=== PATIENT | female | born 1960 | race Caucasian/White ===

== ENCOUNTER 2016-08-09 08:59 | Emergency (ER) | payer OTHER ==
[~2016-08-09] VITALS: Ht 170.2 cm; Wt 66.8 kg
[~2016-08-09 08:59] MED LIST: ADDE30TA PO; BUPR150CR PO; CARV12.52 PO; GABA800T PO
[2016-08-09 09:03] VITALS: BP 135/87; PULSE 106; RESP 16; TEMP 97.6; O2SAT 98
[2016-08-09 09:17] VITALS: BP 145/87; PULSE 105; RESP 19; TEMP 98.4
--- NOTE | 2016-08-09 09:25 | PD ---
HPI Chief Complaint: Dizziness Time Seen by Provider: 09:23 Travel History International Travel<30 days: No Contact w/Intl Traveler<30days: No Traveled to known affect area: No History of Present Illness HPI 55-year-old female presents to the emergency department for evaluation of dizziness for 4 days as well as occipital headache. Patient's been seen before for headache and worked up for possible metastatic disease, and states this is her chronic headaches. Patient also states she has vomited twice, once this morning. She denies any syncopal episodes. She reports paresthesias to her bilateral hands and feet. She denies any weakness. She reports body aches. Patient denies any chest pain or shortness of breath. She states that she has had bugs crawling in her skin for 4 days. She points to a freckle and states that it is a "dust mite". Patient reports a history of anxiety, depression, cervical cancer, alcoholic. Patient was seen April and in May for headache and paresthesias then as well. She left [place] April and then returned in May to be admitted. She states that she is going to go to [place] for chemotherapy and radiation, but does not have insurance down here so she has not done so here. She has not followed up with the neurosurgeon or oncologist as previously instructed. Previous MRI showed abnormal marrow signal again noted in the upper half of the C2 vertebral body as well as the C6 and C7 vertebral bodies of concern for a marrow replacing process such as metastatic disease or myeloma. These areas enhance after gadolinium administration; disc osteophyte complexes at the C4-5 and C5-6 levels as well as an annular disc bulge at C6-7 with mild mass effect on the anterior thecal sac no mass effect upon the cord; narrowing of the neural foramina bilaterally at the C4-5 and C5-6 levels. PFSH Past Medical History Blood Disorders: No Bipolar Disorder: Yes Anxiety: Yes Depression: Yes Heart Rhythm Problems: No Cancer: Yes (lesions found on her brain/skull as per pt.) Cardiovascular Problems: Yes (HTN) High Cholesterol: No Chest Pain: No Congestive Heart Failure: No Diabetes: No Diminished Hearing: No Endocrine: No Gastrointestinal Disorders: Yes (IBS) Genitourinary: No Headaches: Yes Hepatitis: Yes (C) Hiatal Hernia: No Hypertension: Yes Immune Disorder: No Implanted Vascular Access Dvce: No Musculoskeletal: No Neurologic: No Psychiatric: Yes (BIPOLAR, MANIC DEPRESSION) Reproductive: Yes (CERVICAL CANCER) Respiratory: No Immunizations Current: Yes 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) Thyroid Disease: No ?: Not : 5 Para: 4 Miscarriage: 1 : 0 Past Surgical History Abdominal Surgery: No AICD: No Body Medical Devices: NONE Cardiac Surgery: No Ear Surgery: No Endocrine Surgery: No Eye Surgery: No Genitourinary Surgery: No Gynecologic Surgery: Yes (MULTIPLE CONE BIOPSIES FOR CERVICAL DYSPLASIA) Joint Replacement: No Neurologic Surgery: No Oral Surgery: Yes (TONSILLECTOMY) Pacemaker: No Thoracic Surgery: No Tonsillectomy: Yes Other Surgery: Yes (TONSILECTOMY) Social History Alcohol Use: No (recovered alcoholic) Tobacco Use: Yes Substance Use: No Allergies-Medications (Allergen,Severity, Reaction): Coded Allergies: Zyrtec (Verified Allergy, Severe, 06/12/16) PALPATATIONS Reported Meds & Prescriptions Reported Meds & Active Scripts Active Permethrin Topical (Permethrin) 5% Cream 1 Applic TOPICAL ONCE Reported Kkqhjrr-Fuqzumdtsiugt-Lusgjgnz 250-250-65 mg Tab 2 Tab PO PRN Wellbutrin SR 12 HR (Bupropion HCl) 150 Mg Tab 150 Mg PO Q12HR Carvedilol 12.5 Mg Tab 12.5 Mg PO BID Adderall (Amphetamine-Dextroamphetamine) 30 Mg Tab 30 Mg PO BID Avoid late evening doses. Space doses at least 4 to 6 hours if more than once/day dosing. Gabapentin 800 Mg Tab 800 Mg PO TID Review of Systems Except as stated in HPI: all other systems reviewed are Neg Physical Exam Narrative GENERAL: Well-developed well-nourished female patient, ambulatory. Afebrile. Patient cannot keep still and appears anxious on exam. SKIN: Warm and dry. HEAD: Normocephalic. Atraumatic. EYES: No scleral icterus. No injection or drainage. NECK: Supple, trachea midline. No JVD or lymphadenopathy. CARDIOVASCULAR: Regular rate and rhythm without murmurs, gallops, or rubs. RESPIRATORY: Breath sounds equal bilaterally. No accessory muscle use. Lung sounds are clear to auscultation. GASTROINTESTINAL: Abdomen soft, non-tender, nondistended. MUSCULOSKELETAL: No cyanosis, or edema. Bilateral upper and lower she was treated 5/. All extremities are neurovascularly intact. BACK: Nontender without obvious deformity. No CVA tenderness. NEUROLOGICAL: Awake and alert. Cranial nerves II through XII intact. Motor and sensory grossly within normal limits. Five out of 5 muscle strength in all muscle groups. Normal speech. Data Data Last Documented VS Vital Signs Date Time Temp Pulse Resp B/P Pulse Ox O2 Delivery O2 Flow Rate FiO2 08/09/16 09:40 105 19 146/97 102 19 138/89 110 20 136/82 08/09/16 09:39 99 08/09/16 09:17 98.4 Orders Complete Blood Count With Diff (08/09/16 09:21) Comprehensive Metabolic Panel (08/09/16 09:21) Urinalysis - C+S If Indicated (08/09/16 09:21) Ct Brain W/O Iv Contrast(Rout) (08/09/16 09:21) Iv Access Insert/Monitor (08/09/16 09:21) Oximetry (08/09/16 09:21) Sodium Chloride 0.9% Flush (Ns Flush) (08/09/16 09:30) Alcohol (Ethanol) (08/09/16 09:21) Drug Screen, Random Urine (08/09/16 09:21) Orthostatic Vital Signs (08/09/16 09:25) Labs Laboratory Tests Test 08/09/16 08/09/16 09:10 10:20 White Blood Count 4.2 TH/MM3 Red Blood Count 4.20 MIL/MM3 Hemoglobin 12.1 GM/DL Hematocrit 36.0 % Mean Corpuscular Volume 85.7 FL Mean Corpuscular Hemoglobin 28.7 PG Mean Corpuscular Hemoglobin 33.5 % Concent Red Cell Distribution Width 14.4 % Platelet Count 180 TH/MM3 Mean Platelet Volume 7.9 FL Neutrophils (%) (Auto) 44.5 % Lymphocytes (%) (Auto) 44.2 % Monocytes (%) (Auto) 8.3 % Eosinophils (%) (Auto) 2.5 % Basophils (%) (Auto) 0.5 % Neutrophils # (Auto) 1.9 TH/MM3 Lymphocytes # (Auto) 1.9 TH/MM3 Monocytes # (Auto) 0.4 TH/MM3 Eosinophils # (Auto) 0.1 TH/MM3 Basophils # (Auto) 0.0 TH/MM3 CBC Comment DIFF FINAL Differential Comment Sodium Level 139 MEQ/L Potassium Level 3.5 MEQ/L Chloride Level 102 MEQ/L Carbon Dioxide Level 31.9 MEQ/L Anion Gap 5 MEQ/L Blood Urea Nitrogen 16 MG/DL Creatinine 0.91 MG/DL Estimat Glomerular Filtration 65 ML/MIN Rate Random Glucose 88 MG/DL Calcium Level 9.1 MG/DL Total Bilirubin 0.4 MG/DL Aspartate Amino Transf 58 U/L (AST/SGOT) Alanine Aminotransferase 65 U/L (ALT/SGPT) Alkaline Phosphatase 80 U/L Total Protein 7.6 GM/DL Albumin 3.8 GM/DL Ethyl Alcohol Level LESS THAN 3 MG/DL Urine Color LIGHT-YELLOW Urine Turbidity CLEAR Urine pH 6.5 Urine Specific [place] 1.004 Urine Protein NEG mg/dL Urine Glucose (UA) NEG mg/dL Urine Ketones NEG mg/dL Urine Occult Blood NEG Urine Nitrite NEG Urine Bilirubin NEG Urine Urobilinogen LESS THAN 2.0 MG/DL Urine Leukocyte Esterase NEG Urine WBC LESS THAN 1 /hpf Urine Squamous Epithelial 1 /hpf Cells Microscopic Urinalysis Comment CULT NOT INDICATED Urine Opiates Screen NEG Urine Barbiturates Screen NEG Urine Amphetamines Screen POS Urine Benzodiazepines Screen NEG Urine Cocaine Screen NEG Urine Cannabinoids Screen NEG MDM Medical Decision Making Medical Screen Exam Complete: Yes Emergency Medical Condition: Yes Medical Record Reviewed: Yes Interpretation(s) CT brain - CONCLUSION: Negative for an acute process.. Differential Diagnosis Chronic headache. Anxiety versus electrolyte abnormality versus substance abuse versus intracranial abnormality Narrative Course 55-year-old female presents to the emergency department for evaluation of paresthesias to her bilateral feet and hands, feeling of being bit by bugs all over, headache, dizziness. CBC, CMP, UA, urine drug screen are ordered and pending. CT of the brain is ordered and pending. CBC is unremarkable. CMP shows slightly elevated liver enzymes, no acute abnormality. UA showed no evidence of acute infection. Urine drug screen is positive for amphetamines, the patient is on Adderall according to medication history. CT of the brain is negative for acute process. Orthostatic vital signs are negative orthostatic hypotension. Physical Exam is reassuring. Patient is ambulatory without difficulty in the emergency department. Symptoms appear chronic at this time and she is instructed to follow-up with a neuro surgeon and oncologist as previously instructed Patient will be discharged with a prescription for permethrin cream for possible scabies. She is instructed to follow up with her primary care physician. She is return for any acute worsening of symptoms. Diagnosis Primary Impression: Headache Qualified Code: R51 - Chronic nonintractable headache, unspecified headache type Additional Impression: Psychogenic formication Referrals: Primary Care Physician call for appointment Patient Instructions: General Headache (ED), General Instructions Additional Instructions: Use permethrin cream as instructed. Thoroughly massage cream (30 g for average adult) from head to soles of feet; leave on for 8 to 14 hours before removing ( shower or bath) Follow-up with neurosurgeon and oncologist as previously instructed. Follow-up with your primary care physician. Return to the emergency department for any acute worsening of symptoms. Med/Other Pt SpecificInfo: Prescription(s) given Scripts Permethrin Topical 5% Cream1 Applic TOPICAL ONCE #1 TUBE Ref 0 Prov:Sonam Isaacs 08/09/16 Disposition: 01 DISCHARGE HOME Condition: Stable Sonam Isaacs Aug 09, 2016 09:25 Sonam Isaacs Aug 09, 2016 09:25
[2016-08-09] MEDS ORDERED: [UNRECOGNIZED DRUG - CODE] PO (09:26)
[2016-08-09] MEDS ORDERED: SODIUM CHLORIDE 0.9% FLUSH 5 ML FLUSH IVF PRN (09:30)
[2016-08-09 09:39] VITALS: O2SAT 99
[2016-08-09 09:40] VITALS: BP_SYST 136; BP_SYST 138; BP_SYST 146; BP_DIAS 82; BP_DIAS 89; BP_DIAS 97; RESP 19; RESP 20
[2016-08-09 09:51] LABS: AUTOMATED NEUTROPHIL # 1.9 TH/MM3 (1.8-7.7); BASOPHIL % 0.5 % (0.0-2.0); EOSINOPHIL # 0.1 TH/MM3 (0-0.4); EOSINOPHIL % 2.5 % (0.0-4.0); HEMO FLAGS DIFF FINAL; LYMPH % 44.2 % (9.0-44.0); LYMPHOCYTE # 1.9 TH/MM3 (1.0-4.8); MEAN CELL VOLUME 85.7 FL (80.0-100.0); MEAN CORPUSCULAR HEMOGLOBIN 28.7 PG (27.0-34.0); MEAN CORPUSCULAR HGB CONC 33.5 % (32.0-36.0); MONO % 8.3 % (0.0-8.0); NEUT % 44.5 % (16.0-70.0); PLATELET COUNT 180 TH/MM3 (150-450); RED CELL DISTRIBUTION WIDTH 14.4 % (11.6-17.2); WHITE BLOOD COUNT 4.2 TH/MM3 (4.0-11.0)
--- NOTE | 2016-08-09 09:51 | RADRPT ---
EXAM DATE/TIME: 08/09/2016 09:38 [facility] COMPARISON: CT BRAIN W/O CONTRAST, July 23, 2013, 21:19. INDICATIONS : Dizziness. Cephalgia. RADIATION DOSE: 36.27 CTDIvol (mGy) MEDICAL HISTORY : Cerebrovascular disease. Hepatitis C. Hypertension.Cervical cancer. SURGICAL HISTORY : None. ENCOUNTER: Initial ACUITY: 3 days PAIN SCALE: 7/10 LOCATION: cranial TECHNIQUE: Multiple contiguous axial images were obtained of the head. Using automated exposure control and adj ustment of the mA and/or kV according to patient size, radiation dose was kept as low as reasonably a chievable to obtain optimal diagnostic quality images. FINDINGS: CEREBRUM: The ventricles are normal for age. No evidence of midline shift, mass lesion, hemorrhage or acute in farction. No extra-axial fluid collections are seen. POSTERIOR FOSSA: The cerebellum and brainstem are intact. The 4th ventricle is midline. The cerebellopontine angle i s unremarkable. EXTRACRANIAL: The visualized portion of the orbits is intact. SKULL: The calvaria is intact. No evidence of skull fracture. CONCLUSION: Negative for an acute process.. Dani Smith MD FACR on August 09, 2016 at 9:49 Board Certified Radiologist. This report was verified electronically.
[2016-08-09 10:00] LABS: ANION GAP 5 MEQ/L (5-15)
[2016-08-09 10:04] LABS: ALKALINE PHOSPHATASE 80 U/L (45-117); ALT (GPT) 65 U/L (10-53); AST (GOT) 58 U/L (15-37); BICARBONATE 31.9 MEQ/L (21.0-32.0); BLOOD UREA NITROGEN 16 MG/DL (7-18); CHLORIDE 102 MEQ/L (98-107); GLOMERULAR FILTRATION RATE 65 ML/MIN (>89); POTASSIUM 3.5 MEQ/L (3.5-5.1); SODIUM (NA) 139 MEQ/L (136-145); TOTAL BILIRUBIN ADULT 0.4 MG/DL (0.2-1.0)
[2016-08-09 10:39] LABS: BLOOD, URINE NEG (NEG); GLUCOSE,URINE NEG (NEG); KETONE, URINE NEG (NEG); NITRITE,URINE NEG (NEG); PH, URINE 6.5 (5.0-8.5); SQUAMOUS EPITHELIAL CELL URINE 1 /hpf (0-5); URINE COLOR LIGHT-YELLOW (YELLW/STRAW)
[2016-08-09 10:42] LABS: COMMENT (UR) CULT NOT INDICATED; CULTURE IF INDICATED CULT NOT INDICATED
[2016-08-09] MEDS ORDERED: PERM5CRE TOPICAL (10:45)
[2016-08-09 11:22] LABS: AMPHETAMINE, URINE POS (NEG); BARBITURATES, URINE NEG (NEG); COCAINE, URINE NEG (NEG)
--- NOTE | 2016-08-09 11:42 | PD ---
Data Data Last Documented VS Vital Signs Date Time Temp Pulse Resp B/P Pulse Ox O2 Delivery O2 Flow Rate FiO2 08/09/16 09:40 105 19 146/97 102 19 138/89 110 20 136/82 08/09/16 09:39 99 08/09/16 09:17 98.4 Orders Complete Blood Count With Diff (08/09/16 09:21) Comprehensive Metabolic Panel (08/09/16 09:21) Urinalysis - C+S If Indicated (08/09/16 09:21) Ct Brain W/O Iv Contrast(Rout) (08/09/16 09:21) Iv Access Insert/Monitor (08/09/16 09:21) Oximetry (08/09/16 09:21) Sodium Chloride 0.9% Flush (Ns Flush) (08/09/16 09:30) Alcohol (Ethanol) (08/09/16 09:21) Drug Screen, Random Urine (08/09/16 09:21) Orthostatic Vital Signs (08/09/16 09:25) Labs Laboratory Tests Test 08/09/16 08/09/16 09:10 10:20 White Blood Count 4.2 TH/MM3 Red Blood Count 4.20 MIL/MM3 Hemoglobin 12.1 GM/DL Hematocrit 36.0 % Mean Corpuscular Volume 85.7 FL Mean Corpuscular Hemoglobin 28.7 PG Mean Corpuscular Hemoglobin 33.5 % Concent Red Cell Distribution Width 14.4 % Platelet Count 180 TH/MM3 Mean Platelet Volume 7.9 FL Neutrophils (%) (Auto) 44.5 % Lymphocytes (%) (Auto) 44.2 % Monocytes (%) (Auto) 8.3 % Eosinophils (%) (Auto) 2.5 % Basophils (%) (Auto) 0.5 % Neutrophils # (Auto) 1.9 TH/MM3 Lymphocytes # (Auto) 1.9 TH/MM3 Monocytes # (Auto) 0.4 TH/MM3 Eosinophils # (Auto) 0.1 TH/MM3 Basophils # (Auto) 0.0 TH/MM3 CBC Comment DIFF FINAL Differential Comment Sodium Level 139 MEQ/L Potassium Level 3.5 MEQ/L Chloride Level 102 MEQ/L Carbon Dioxide Level 31.9 MEQ/L Anion Gap 5 MEQ/L Blood Urea Nitrogen 16 MG/DL Creatinine 0.91 MG/DL Estimat Glomerular Filtration 65 ML/MIN Rate Random Glucose 88 MG/DL Calcium Level 9.1 MG/DL Total Bilirubin 0.4 MG/DL Aspartate Amino Transf 58 U/L (AST/SGOT) Alanine Aminotransferase 65 U/L (ALT/SGPT) Alkaline Phosphatase 80 U/L Total Protein 7.6 GM/DL Albumin 3.8 GM/DL Ethyl Alcohol Level LESS THAN 3 MG/DL Urine Color LIGHT-YELLOW Urine Turbidity CLEAR Urine pH 6.5 Urine Specific [place] 1.004 Urine Protein NEG mg/dL Urine Glucose (UA) NEG mg/dL Urine Ketones NEG mg/dL Urine Occult Blood NEG Urine Nitrite NEG Urine Bilirubin NEG Urine Urobilinogen LESS THAN 2.0 MG/DL Urine Leukocyte Esterase NEG Urine WBC LESS THAN 1 /hpf Urine Squamous Epithelial 1 /hpf Cells Microscopic Urinalysis Comment CULT NOT INDICATED Urine Opiates Screen NEG Urine Barbiturates Screen NEG Urine Amphetamines Screen POS Urine Benzodiazepines Screen NEG Urine Cocaine Screen NEG Urine Cannabinoids Screen NEG MDM Supervised Visit with EILEEN: Yes Narrative Course I, Dr. Rich, have reviewed the advance practice practioner's documentation and am in agreement, met with the patient face to face, made the diagnosis, and the medical decision making was done by me. *My assessment and Findings: Bizarre 59-year-old female here with complaint of dizziness and that formication. Patient states that she feels numb and tingly in her fingertips, anxious. Patient points to freckle's on the skin and flex of dust, flex of clothing material and states that these are bugs that have been biting her. Patient is insistent that she has a formication feeling throughout the torso and extremities. Interestingly she has chronic headaches and that was seen recently with a cervical spine lesion concerning for possible metastatic disease and needing outpatient follow-up with oncology that she has yet to follow up with. She does have a PCP for which she can follow-up with these chronic issues. Patient's neurologic examination is unremarkable, she is strong in all extremities and ambulates without any difficulty. She does not have any evidence of burrowing of the intertriginous regions or rash. My strong suspicion is that this is psychogenic formication, but with her history concern for intracranial mass lesion, polysubstance abuse, electrolyte abnormality. Patient's CT of the brain and laboratory workup were unremarkable except for positive methamphetamines, likely resulting in her psychogenic formication. Patient was given permethrin simply as a means to reassure her but clinically she does not have any evidence of scabies. She was encouraged to follow up with outpatient PCP for her above chronic issues. Diagnosis Primary Impression: Psychogenic formication Additional Impressions: Headache Qualified Code: R51 - Chronic nonintractable headache, unspecified headache type Insect bites Qualified Code: W57.XXXA - Insect bites, initial encounter Referrals: Primary Care Physician call for appointment Patient Instructions: General Instructions, General Headache (ED) Additional Instruction: Use permethrin cream as instructed. Thoroughly massage cream (30 g for average adult) from head to soles of feet; leave on for 8 to 14 hours before removing ( shower or bath) Follow-up with neurosurgeon and oncologist as previously instructed. Follow-up with your primary care physician. Return to the emergency department for any acute worsening of symptoms. Scripts Permethrin Topical 5% Cream1 Applic TOPICAL ONCE #1 TUBE Ref 0 Prov:FernySonam 08/09/16 Disposition: 01 DISCHARGE HOME Condition: Stable Lydia Rich MD Aug 09, 2016 11:42
[2016-08-09 13:15] VITALS: BP 147/82
== END 2016-08-09 13:18 | disposition home or self-care (01) ==
LOC: NEPA 08:59
DX: R51 Headache (principal); F45.8 Other somatoform disorders; R20.2 Paresthesia of skin; R42 Dizziness and giddiness; I10 Essential (primary) hypertension
CPT/HCPCS: 70450; 80053; 80307; 80320; 81001; 85025

== ENCOUNTER 2016-08-25 03:57 | Inpatient (IN) | payer OTHER ==
[~2016-08-25] VITALS: Ht 170.2 cm; Wt 65.3 kg
[~2016-08-25 03:57] MED LIST changes: +PERM5CRE TOPICAL; +[UNRECOGNIZED DRUG - CODE] PO
[2016-08-25 05:28] VITALS: BP 143/77; PULSE 81; RESP 18; TEMP 97.2; O2SAT 95
[2016-08-25] MEDS ORDERED: MAGNESIUM HYDROXIDE SUSP 30 ML CUP PO PRN (06:00)
[2016-08-25] MEDS ORDERED: BENZTROPINE MESYLATE 1 MG TAB PO PRN (06:00)
[2016-08-25] MEDS ORDERED: diphenhydrAMINE HCL 50 MG CAP - HS PRN PO (06:00)
[2016-08-25] MEDS ORDERED: LORazepam 2 MG/ML VIAL IM PRN (06:00)
[2016-08-25] MEDS ORDERED: LORazepam 1 MG TAB PO PRN ×2 (06:00→16:00)
[2016-08-25] MEDS ORDERED: BENZTROPINE MESYLATE 2 MG/2 ML VIAL IM PRN (06:00)
[2016-08-25] MEDS ORDERED: ALUMINUM/MAGNESIUM/SIMETH 30 ML CUP PO PRN (06:00)
[2016-08-25] MEDS ORDERED: diphenhydrAMINE HCL 50 MG CAP PO PRN (06:00)
[2016-08-25] MEDS ORDERED: ACETAMINOPHEN 325 MG TAB PO PRN (06:00)
[2016-08-25] MEDS ORDERED: diphenhydrAMINE HCL 50 MG/ML VIAL IM PRN (06:00)
[2016-08-25] MEDS ORDERED: diphenhydrAMINE HCL 50 MG/ML VIAL - HS PRN IM (06:00)
[2016-08-25] MEDS ORDERED: traZODone HCL 50 MG TAB PO PRN (06:00)
[2016-08-25] MEDS ORDERED: BUSP10TA PO (06:20)
[2016-08-25] MEDS ORDERED: PROM25TA5 PO (06:20)
[2016-08-25] MEDS ORDERED: TOPI1CAP16 PO (06:20)
[2016-08-25] MEDS ORDERED: AMPH1TAB83 PO (06:20)
[2016-08-25] MEDS ORDERED: AMOX500C PO (06:20)
[2016-08-25] MEDS ORDERED: ACET1CAP18 PO (06:20)
[2016-08-25 09:15] LABS: ANION GAP 6 MEQ/L (5-15); BICARBONATE 31.4 MEQ/L (21.0-32.0); BLOOD UREA NITROGEN 9 MG/DL (7-18); CHLORIDE 101 MEQ/L (98-107); GLOMERULAR FILTRATION RATE 70 ML/MIN (>89); HDL CHOLESTEROL 69.5 MG/DL (40.0-60.0); LDL CHOLESTEROL 61 MG/DL (0-99); POTASSIUM 4.3 MEQ/L (3.5-5.1); SODIUM (NA) 138 MEQ/L (136-145)
[2016-08-25] MEDS ORDERED: LORazepam 2 MG/ML VIAL IV PUSH PRN ×4 (16:00)
[2016-08-25] MEDS ORDERED: LORazepam 2 MG TAB PO PRN (16:00)
[2016-08-25] MEDS ORDERED: FLUMAZENIL 0.5 MG/5 ML VIAL IV PUSH PRN (16:00)
--- NOTE | 2016-08-25 16:07 | HHI.HP ---
Provisional Diagnosis Admission Date Aug 25, 2016 at 05:47 [place] I. 1. Bipolar disorder, currently depressed severe without psychotic features Rule out with psychotic features 2. Alcohol use with history of heavy alcohol use. Suspect alcohol use disorder. [place] II. Deferred [place] V. GAF is 35 Certification of Person's Competence To Provide Express and Informed Consent I have personally examined Richar Dong , a person being served at [facility] on, Aug 25, 2016 15:43. Express and informed consent means consent voluntarily given in writing, by a competent person, after sufficient explanation and disclosure of the subject matter involved to enable the person to make a knowing and willful decision without any element of force, fraud, deceit, duress, or other form of constraint or coercion. This person is 18 years of age or older, is not now known to be incompetent to consent to treatment with a guardian advocate, and does not have a health care surrogate or proxy currently making medical treatment decisions. I have found this person to be one of the following: [x] Competent to provide express and informed consent, as defined above, for voluntary admission to this facility and is competent to provide express and informed consent for treatment. He/she has the consistent capacity to make well reasoned, willful, and knowing decisions concerning his or her medical or mental health treatment. The person fully and consistently understands the purpose of the admission for examination/placement and is fully capable of personally exercising all rights assured under [place] [] Incompetent to provide express and informed consent to voluntary admission, and this is incompetent to provide express and informed consent to treatment. The person must be transferred to involuntary status and a petition for a guardian advocate filed with the Circuit Court. [] Refusing to provide express and informed consent to voluntary admission but is competent to provide express and informed consent for treatment. The person must be discharged or transferred to involuntary status. Form shall be completed within 24 hours of a person's arrival at the receiving facility and filed in the clinical record of each person: 1. Admitted on a voluntary basis 2. Permitted to provide express and informed consent to his/her own treatment 3. Allowed to transfer from involuntary to voluntary status 4. Prior to permitting a person to consent to his or her own treatment after having been previously found incompetent to consent to treatment. History of Present Illness Capacity: Has Capacity HPI Ms. Dong is a 55-year-old female with a reported history of bipolar disorder who presents in transfer from [facility] under a Kirkpatrick act. Reviewing the documentation from [facility], it appears that the patient presented there complaining of having mites and also feeling depressed. She articulated suicidal ideation and said that she might take her blood pressure pills in an overdose. She was placed under the Kirkpatrick act and sent to [place]. Reviewing our electronic medical record, I note the most recent contact with psychiatry here was Dr. Pinto's consultation in 2011 after the patient made a lithium overdose. Patient seen and examined. Chart reviewed. Case discussed with nursing staff. On my examination today, the patient opens our interview by recapitulating the narrative that she had told Dr. Pinto about her problems starting after her ex- ran off with her children back to [place] 6 years ago. She says that she had a "mental breakdown" at that time and was taken to Hospital in [place] where she was diagnosed with bipolar disorder. She says that recently she has been staying with some friends, one of whom brought home a dog. She maintains that the dog has mites and that she caught the mites. She says that her roommates didn't see them and didn't believe her. She says that she went to her doctor and received some sort of cream that she left on her skin for about 9 hours which gave her relief, but she wasn't told to repeated after 10 days when she says that the eggs would ortiz, and consequently she believes that she has been reinvested. She is quite distressed and tearful about this. She says that her roommate must've overheard her talking to her boyfriend about wanting to kill herself because she is so distraught about believing that she has mites. She makes an offhand comment that her boyfriend also struggles with suicidal ideation and she had suggested that he come down to [place] so that the 2 could overdose on medications together. She denies any urge to hurt herself on the inpatient psychiatric unit but continues to verbalize some vague suicidal ideation if she were discharged, and this is because of her distress at believing that she has mites. She denies any homicidal ideation. She endorses vague audiovisual hallucinations but cannot describe them in any detail. Mood is generally depressed. Sleep and appetite are poor. No hypomanic or manic symptoms noted. Unclear if beliefs about infestation and ex- are reality based at this time. No other delusional material noted. The remainder of the psychiatric ROS is negative. Past psychiatric history: Patient endorses a history of bipolar disorder. She says that she was treated at [facility] until about a year ago. She says that she has had multiple inpatient psychiatric admissions but reports only the 1 prior suicide attempt by overdose on lithium. Family history: Patient reports that her grandfather struggled with alcoholism. She has a brother who is bipolar. She has another brother who completed suicide about 6 years ago but did not have the diagnosis. No other family psychiatric history. Chemical dependency history: Patient admits to a history of heavy drinking, and I do see that she has had several significantly elevated alcohol levels in the past. She maintains that she has significantly curtailed her drinking now. Denies any other substance use. Social history: Patient is originally from [facility]. She is and has 4 children. She is presently living with friends. She is applying for disability. Denies any or legal history. Denies any access to guns or firearms. Review of Systems ROS Limitations: Poor Historian Other No reported headache, vision or hearing changes, chest pain, shortness of breath , bowel or bladder issues. No other somatic complaints. Past Psych History Psychological trauma history Except above incident with ex , no trauma reported. Violence risk - others (6 mos) Lower imminent risk. Denies homicidal ideation. Violence risk - self (6 mos) Indeterminate. Continues to describe some vague suicidal ideation. Substance Abuse History Drugs/Alcohol past 12 months See above Past Family Social History Coded Allergies: Zyrtec (Verified Allergy, Severe, 06/12/16) PALPATATIONS Past Medical History See electronic medical record. Includes a history of cervical spine lesion evaluated by hematology/oncology and found not to be neoplastic. Also has a history of GI bleed. Active Scripts Permethrin Topical 5% Cream1 Applic TOPICAL ONCE #1 TUBE Ref 0 Prov:Sonam Isaacs 08/09/16 Reported Medications Acetaminophen (Tylenol)325 Mg [id number] Mg PO Q6H PRN (PAIN SCALE 1 TO 10) Ref 0 08/25/16 Amoxicillin 500 Mg Ame068 Mg PO TID Ref 0 08/25/16 Amphetamine Sulfate (Evekeo)10 Mg Tab10 Mg PO BID #30 TAB Ref 0 1st dose on awakening; additional doses at intervals of 4-6 hrs. Avoid late evening. If treating exogenous obesity, take 30-60 min before meals. 08/25/16 Promethazine (Phenergan)25 Mg Tab25 Mg PO Q8HR PRN (Nausea/Vomiting) Ref 0 08/25/16 Buspirone 10 Mg Tab10 Mg PO BID Ref 0 08/25/16 Topiramate ER 25 Mg Cap25 Mg PO DAILY #30 CAP Ref 0 08/25/16 Carvedilol 12.5 Mg Tab12.5 Mg PO BID #60 TAB Ref 0 05/19/16 Gabapentin 800 Mg Qql422 Mg PO TID #90 TAB Ref 0 05/19/16 Discontinued Reported Medications Spfyvdu-Iihkbqpwusags-Wkpiydxw 250-250-65 mg Tab2 Tab PO PRN (HEADACHE) Ref 0 08/09/16 Bupropion HCl ER 12 HR (Wellbutrin SR 12 HR)150 Mg Llq833 Mg PO Q12HR Ref 0 05/19/16 Amphetamine-Dextroamphetamine (Adderall)30 Mg Tab30 Mg PO BID #60 TAB Ref 0 Avoid late evening doses. Space doses at least 4 to 6 hours if more than once/day dosing. 05/19/16 Current Medications Medications (Trade) Dose Ordered Sig/[place] Route Start Time Stop Time Status Last Admin (Ativan) 1 mg Q6H PRN PO 08/25/16 06:00 (Ativan Inj) 1 mg Q6H PRN IM 08/25/16 06:00 (Atarax) 50 mg Q6H PRN PO 08/25/16 06:00 (Benadryl) 50 mg Q6H PRN PO 08/25/16 06:00 (Benadryl Inj) 50 mg Q6H PRN IM 08/25/16 06:00 (Cogentin) 1 mg Q12H PRN PO 08/25/16 06:00 (Cogentin Inj) 1 mg Q12H PRN IM 08/25/16 06:00 (Benadryl) 50 mg HS PRN PO 08/25/16 06:00 (Benadryl Inj) 50 mg HS PRN IM 08/25/16 06:00 (Desyrel) 50 mg HS PRN PO 08/25/16 06:00 (Tylenol) 650 mg Q4H PRN PO 08/25/16 06:00 (Milk Of Magnesia Liq) 30 ml DAILY PRN PO 08/25/16 06:00 (Mag-Al Plus Susp Liq) 30 ml Q6H PRN PO 08/25/16 06:00 Family History See above Social History See above Patient's Strengths (min. 2) In a monitored setting. Verbally fluent. Physical Exam Physical examination completed at outside hospital. On my examination today, patient is in no acute physical distress. No hand tremor, no diaphoresis, no mydriasis noted. No other signs of withdrawal noted. No other abnormal motor movements noted. Steady gait and station. No visible evidence of infestation. Labs and vital signs reviewed. Vital Signs Vital Signs Date Time Temp Pulse Resp B/P Pulse Ox O2 Delivery O2 Flow Rate FiO2 08/25/16 05:28 97.2 81 18 143/77 95 Lab Results Laboratories from outside hospital reviewed: CBC significant for mildly decreased white blood cells at 4.1. CMP significant for mild hyperglycemia at 114 and a nonfasting sample. Mild transaminitis. Alcohol level undetectable. TSH within normal limits. I do not see any urine toxicology on file. Item Value Date Time Sodium Level 138 MEQ/L 08/25/16 0742 Potassium Level 4.3 MEQ/L 08/25/16 0742 Chloride Level 101 MEQ/L 08/25/16 0742 Carbon Dioxide Level 31.4 MEQ/L 08/25/16 0742 Blood Urea Nitrogen 9 MG/DL 08/25/16 0742 Creatinine 0.85 MG/DL 08/25/16 0742 Mental Status Examination Patient is in hospital gown. She is somewhat disheveled but is maintaining basic hygiene. She is awake and alert and oriented 3. No evidence of delirium. No abnormal motor movements noted. Speech is within normal limits for rate, tone and volume. Language and fund of knowledge are average. Mood is depressed and affect is restricted. Thought process somewhat circumstantial , at times tangential. Unclear if there are paranoid delusions and somatic delusions. Endorses some vague audiovisual hallucinations. Describes vague suicidal ideation but denies any urge to hurt herself on the inpatient psychiatric unit. Denies homicidal ideation. Insight and judgment are fair at best. Assessment & Plan Problem List: (1) Bipolar disorder ICD Code: F31.9 (2) Alcohol use ICD Code: Z78.9 Assessment & Plan This is a 55-year-old female with psychiatric history as detailed above who presents in transfer from outside hospital under a Kirkpatrick act. On my examination today, the patient is fairly depressed in the acute stressor appears to be her belief that she was infested with mites. She endorses low mood, sleep and appetite disturbance and suicidal ideation. Unclear if this believe has a psychotic basis, although I can see no obvious evidence of infestation. Patient is willing to remain on the inpatient psychiatric unit for a period of observation and stabilization, and so I will admit her to the unit for this purpose as well as to monitor for safety. Admitted inpatient. Voluntary status. I will ask the hospitalist to evaluate the patient for any evidence of infestation and also given her somewhat complex medical history. For mood stabilization, initiate Seroquel at low dose with plans to titrate. Patient reports a good response to BuSpar in the past for her anxiety and so I will start this as well at low dose. CIWA with Ativan for any withdrawal. Thiamine and folate. Seizure and fall precautions. Atarax as needed for anxiety, Cogentin as needed for EPS. Vitals every shift. Counselor to see. Disposition planning. Estimated length of stay: 7-9 days. Discharge Planning Pending psychiatric stabilization Request HC Surrog/Guard Advoc?: No Problem Qualifiers (1) Bipolar disorder: Qualified Code: F31.4 - Bipolar disorder, current episode depressed, severe, without psychotic features Medhat Perera MD Aug 25, 2016 16:06
[2016-08-25 16:16] LABS: HEMOGLOBIN A1b 0.7 %; HEMOGLOBIN F 0.9 %; HEMOGLOBIN P3 3.7 %
--- NOTE | 2016-08-25 17:18 | PD.CONS ---
HPI Service [facility] Hospitalists Consult Requested By Psychiatry Reason for Consult Medical management Primary Care Physician Unknown Diagnoses: History of Present Illness 55-year-old female with past medical history significant for depression, alcohol abuse, hypertension, hepatitis C was transferred to [facility] and admitted to inpatient psychiatry for evaluation of suicidal ideation.[facility] was consulted for medical management as patient's claim she was treated with Permethrin 1 10 days ago secondary to exposure to mites from a homeless dog brought into her house. Patient endorses pruritus. Review of Systems Other 12 systems reviewed and are negative except for the one mentioned in the history of present illness Past Family Social History Allergies: Coded Allergies: Zyrtec (Verified Allergy, Severe, 06/12/16) PALPATATIONS Past Medical History 1. Alcohol abuse. 2. Cervical cancer status post cone biopsies 5. 3. Hypertension. 4. Diabetes mellitus 5. Hepatitis C antibody reactive 6. History of alcohol withdrawal seizures with hallucinations. Past Surgical History 1. Combined biopsies. Denies other surgeries. Family History history of cancer, diabetes or hypertension. Social History Patient drinks 8 beers a day. Has history of alcoholic withdrawal seizures. Smokes one pack per day. Denies illicit drug use. Physical Exam Vital Signs Vital Signs Date Time Temp Pulse Resp B/P Pulse Ox O2 Delivery O2 Flow Rate FiO2 08/25/16 05:28 97.2 81 18 143/77 95 Physical Exam Patient did not 1 any physical examination to be performed Laboratory Laboratory Tests Test 08/25/16 07:42 Sodium Level 138 Potassium Level 4.3 Chloride Level 101 Carbon Dioxide Level 31.4 Anion Gap 6 Blood Urea Nitrogen 9 Creatinine 0.85 Estimat Glomerular Filtration 70 Rate Random Glucose 94 Calcium Level 8.7 Triglycerides Level 96 Cholesterol Level 150 LDL Cholesterol 61 HDL Cholesterol 69.5 Cholesterol/HDL Ratio 2.15 Result Diagram: 08/25/16 0742 Assessment and Plan Assessment and Plan 55-year-old female with 1-Exposure to scabies/Mites: Will treat with Permethrin 5%cream x 1 now 2-Suicidal ideation: Management per psychiatry, continue Kirkpatrick act 3-Severe depression: Management per psychiatry 4-History of alcohol abuse: Counseled to quit; continue rally pack,CIWA per protocol 5-Hypertension: Resume Coreg, clonidine when necessary 6-Elevated free [place] light Chain: Patient was seen and assessed by oncology , and had no evidence of malignancy however recommended follow up in clinic for surveillance. During that hospitalizations, patient has had multiple imagine studies done. 7-Hep C: Chronic continue to monitor DVT prophylaxis: Encourage ambulation Thank you for this consultation, [facility] will sign of reconsult when necessary Code Status Full code Discussed Condition With Patient John Amaral MD Aug 25, 2016 17:18
[2016-08-25] MEDS ORDERED: cloNIDine HCL 0.1 MG TAB PO PRN (18:30)
[2016-08-25] MEDS ORDERED: PERMETHRIN 5% CREAM 60 GM TOPICAL ONE (18:30)
[2016-08-25 18:46] VITALS: BP 116/64; PULSE 124; RESP 18; TEMP 98.2; O2SAT 97
[2016-08-25] MEDS ORDERED: QUEtiapine FUMARATE 25 MG TAB PO SCH (21:00)
[2016-08-25] MEDS: CARVEDILOL 12.5 MG TAB PO SCH (21:18)
[2016-08-25] MEDS: busPIRone HCL 5 MG TAB PO SCH (21:18)
[2016-08-26 05:07] VITALS: BP 135/78; PULSE 85; RESP 18; TEMP 99.2; O2SAT 97
[2016-08-26] MEDS: FOLIC ACID 1 MG TAB PO SCH (08:26)
[2016-08-26] MEDS: CARVEDILOL 12.5 MG TAB PO SCH ×2 (08:27→20:57)
[2016-08-26] MEDS: QUEtiapine FUMARATE 25 MG TAB PO SCH ×2 (08:27→11:21)
[2016-08-26] MEDS: busPIRone HCL 5 MG TAB PO SCH ×3 (08:27→17:11)
[2016-08-26] MEDS: MULTIVITAMINS/MINERALS THERAPEUTIC TAB PO SCH (08:27)
[2016-08-26] MEDS: THIAMINE HCL 100 MG TAB PO SCH (08:27)
--- NOTE | 2016-08-26 14:54 | HHI.PYPN ---
Subjective Remarks Patient seen and examined with nursing staff. Chart reviewed. Case discussed with nursing staff. On my examination today, the patient is discharged focused. She says that she has to plan a trip to [place]. She didn't like the Seroquel last night because she thinks it gave her nightmares. She would like to try the Zyprexa instead. She is extremely medication seeking for Adderall and insists that she must have this medication where she will be wholly unable to concentrate. She denies any suicidal or homicidal ideation. E-FORCSE report reviewed. No stimulants since early June: Fill Date Tniwgfa-Hch-Pici Qty Days Written Prescriber Name 08/15/2016 HYDROCODON-ACETAMINOPH 7.5-325 30 30 NATHALY Wilde MD 07/16/2016 HYDROCODON-ACETAMINOPH 7.5-325 30 30 NATHALY Wilde MD 07/05/2016 TRAMADOL HCL 50 MG TABLET 12 4 CONNER Jansen MD 06/17/2016 DEXTROAMP-AMPHETAMIN 30 MG TAB 60 30 NATHALY Wilde MD 06/17/2016 HYDROCODON-ACETAMINOPH 7.5-325 30 30 NATHALY Wilde MD 06/08/2016 OXYCODONE-ACETAMINOPHEN 5-325 20 3 CARMEN Zambrano DO 05/12/2016 HYDROCODON-ACETAMINOPHEN 5-325 12 3 TERRY LANDRY MD 05/06/2016 HYDROCODON-ACETAMINOPH 7.5-325 12 2 ARLETTE Brown 04/30/2016 DEXTROAMP-AMPHETAMIN 30 MG TAB 60 30 NATHALY Wilde MD 04/30/2016 HYDROCODON-ACETAMINOPH 7.5-325 30 30 NATHALY Wilde MD 03/05/2016 HYDROCODON-ACETAMINOPH 7.5-325 30 30 NATHALY Wilde MD 01/16/2016 TRAMADOL HCL 50 MG TABLET 90 30 NATHALY Wilde MD 01/16/2016 DEXTROAMP-AMPHETAMIN 30 MG TAB 60 30 NATHALY Wilde MD 12/29/2015 TRAMADOL HCL 50 MG TABLET 24 4 GIANFRANCO SEWELL DO 10/11/2015 METHYLPHENIDATE 20 MG TABLET 90 30 NATHALY Wilde MD 10/10/2015 HYDROCODON-ACETAMINOPH 7.5-325 30 30 NATHALY Wilde MD 09/19/2015 HYDROCODON-ACETAMINOPH 7.5-325 30 30 NATHALY Wilde MD 09/19/2015 DEXTROAMP-AMPHETAMIN 30 MG TAB 60 30 NATHALY Wilde MD 09/03/2015 METHYLPHENIDATE 20 MG TABLET 60 30 NATHALY Wilde MD 08/29/2015 TRAMADOL HCL 50 MG TABLET 60 30 NATHALY Wilde MD Review of Systems ROS Limitations: Poor Historian Other No physical complaints today Objective Alert: Yes [place]: Person, Place Mood: Anxious Affect: Blunted Memory Intact: Comment (not formally assessed) Hallucinations: Other (no AVH) Delusions: No Delusion Type: Other (possibly some degree of paranoia) Suicidal: Ideation (denies suicidal ideation) Homicidal: Ideation (denies homicidal ideation) Insight/Judgement Poor Remarks Somewhat fidgety but no overt signs of GABAergic withdrawal. No other abnormal motor movements noted. Speech wnl for rate, tone, volume. TP circumstantial. Labs Labs reviewed. Vitals/IOs Vital Signs Date Time Temp Pulse Resp B/P Pulse Ox O2 Delivery O2 Flow Rate FiO2 08/26/16 05:07 99.2 85 18 135/78 97 Assessment & Plan Problem List: (1) Bipolar disorder Assessment & Plan: Rule-out malingering for stimulant medications. ICD Code: F31.9 (2) Alcohol use ICD Code: Z78.9 Assessment & Plan Replace Seroquel with Zyprexa 5mg qHS. Continue other medications and care as ordered. Per E-FORCSE report, no recent stimulant Rx, and I am concerned this would exacerbate her psychiatric disorder in any event; I will not start stimulant. Patient has requested to sign a right of release, saying she has to plan a trip to [place]. I have encouraged her to remain on the unit for further stabilization. Justification for Cont. Inpt. Monitoring for any impairments in safety. No evidence of any suicidality or homicidality on the unit and patient is denying SI and HI. Discharge Planning Monitor overnight. Counselor to obtain collateral. Possible discharge tomorrow per ROR. Request HC Surrog/Guard Advoc?: No Problem Qualifiers (1) Bipolar disorder: Qualified Code: F31.4 - Bipolar disorder, current episode depressed, severe, without psychotic features Medhat Perera MD Aug 26, 2016 14:54
[2016-08-26 18:16] VITALS: BP 135/78; PULSE 84; RESP 18; TEMP 98.3; O2SAT 97
[2016-08-26] MEDS: hydrOXYzine HCL 50 MG TAB PO PRN (20:57)
[2016-08-26] MEDS ORDERED: OLANZapine 5 MG TAB PO SCH (21:00)
[2016-08-27 04:55] VITALS: BP 122/58; PULSE 98; RESP 16; TEMP 98.2; O2SAT 98
[2016-08-27] MEDS: THIAMINE HCL 100 MG TAB PO SCH (09:04)
[2016-08-27] MEDS: busPIRone HCL 5 MG TAB PO SCH ×2 (09:04→12:34)
[2016-08-27] MEDS: CARVEDILOL 12.5 MG TAB PO SCH (09:04)
[2016-08-27] MEDS: FOLIC ACID 1 MG TAB PO SCH (09:05)
[2016-08-27] MEDS: MULTIVITAMINS/MINERALS THERAPEUTIC TAB PO SCH (09:05)
[2016-08-27] MEDS: hydrOXYzine HCL 50 MG TAB PO PRN (12:34)
[2016-08-27] MEDS ORDERED: OLAN5TAB PO ×2 (13:41→14:52)
[2016-08-27] MEDS ORDERED: FOLI1TAB4 PO (13:41)
[2016-08-27] MEDS ORDERED: BUSP5TAB PO ×2 (13:41→14:52)
[2016-08-27] MEDS ORDERED: VITA100T2 PO (13:41)
--- NOTE | 2016-08-27 13:42 | HHI.DS ---
Psychiatry Discharge Summary Inpatient Psychiatric care?: Yes Advance Directive: No Reason Not Provided: DENIES Mental Health AdvanceDirective: No Health Care Proxy: No Admission Admission Date Aug 25, 2016 at 05:47 Admission Diagnosis: (1) Bipolar disorder ICD Code: F31.9 (2) Alcohol use ICD Code: Z78.9 Brief History Ms. Dong is a 55-year-old female with a reported history of bipolar disorder who presents in transfer from [facility] under a [place] act. Reviewing the documentation from [facility], it appears that the patient presented there complaining of having mites and also feeling depressed. She articulated suicidal ideation and said that she might take her blood pressure pills in an overdose. She was placed under the [place] act and sent to [place]. Reviewing our electronic medical record, I note the most recent contact with psychiatry here was Dr. Pinto's consultation in 2011 after the patient made a lithium overdose. Patient seen and examined. Chart reviewed. Case discussed with nursing staff. On my examination today, the patient opens our interview by recapitulating the narrative that she had told Dr. Pinto about her problems starting after her ex- ran off with her children back to [place] 6 years ago. She says that she had a "mental breakdown" at that time and was taken to Hospital in [place] where she was diagnosed with bipolar disorder. She says that recently she has been staying with some friends, one of whom brought home a dog. She maintains that the dog has mites and that she caught the mites. She says that her roommates didn't see them and didn't believe her. She says that she went to her doctor and received some sort of cream that she left on her skin for about 9 hours which gave her relief, but she wasn't told to repeated after 10 days when she says that the eggs would ortiz, and consequently she believes that she has been reinvested. She is quite distressed and tearful about this. She says that her roommate must've overheard her talking to her boyfriend about wanting to kill herself because she is so distraught about believing that she has mites. She makes an offhand comment that her boyfriend also struggles with suicidal ideation and she had suggested that he come down to [place] so that the 2 could overdose on medications together. She denies any urge to hurt herself on the inpatient psychiatric unit but continues to verbalize some vague suicidal ideation if she were discharged, and this is because of her distress at believing that she has mites. She denies any homicidal ideation. She endorses vague audiovisual hallucinations but cannot describe them in any detail. Mood is generally depressed. Sleep and appetite are poor. No hypomanic or manic symptoms noted. Unclear if beliefs about infestation and ex- are reality based at this time. No other delusional material noted. The remainder of the psychiatric ROS is negative. Past psychiatric history: Patient endorses a history of bipolar disorder. She says that she was treated at [facility] until about a year ago. She says that she has had multiple inpatient psychiatric admissions but reports only the 1 prior suicide attempt by overdose on lithium. Family history: Patient reports that her grandfather struggled with alcoholism. She has a brother who is bipolar. She has another brother who completed suicide about 6 years ago but did not have the diagnosis. No other family psychiatric history. Chemical dependency history: Patient admits to a history of heavy drinking, and I do see that she has had several significantly elevated alcohol levels in the past. She maintains that she has significantly curtailed her drinking now. Denies any other substance use. Social history: Patient is originally from [facility]. She is and has 4 children. She is presently living with friends. She is applying for disability. Denies any or legal history. Denies any access to guns or firearms. Tobacco Use In Past 30 Days: 5 or More Cigarettes/Day Alcohol Use: Never Hospital Course Patient was admitted to a locked, inpatient psychiatric unit. A general medical consultation was obtained. Appropriate precautions were in place throughout patient's hospital stay. Patient was seen and examined daily on the unit by psychiatry and also visited by counselor. Medications were adjusted. There was no evidence of any suicidality or homicidality on the inpatient unit. Patient remained in good behavioral control. Records indicate she is sleeping and eating well. She participated to a very modest degree in unit activities. She has completed a right of release. On the day of discharge: Patient seen and examined with counselor and nurse. Chart reviewed. Case discussed with nursing staff who reports patient is clear headed and has been no behavioral problem. On my examination today, the patient denies any suicidal or homicidal ideation. She denies any audiovisual hallucinations and there is no evidence of any delusional material. She persists in her desire to leave the hospital. She does say that she slept very well with the addition of Zyprexa and would like to continue this medication on discharge. She is somewhat medication seeking for stimulants. Denies side effects from medications. No reported symptoms of withdrawal. She is agreeable to following up with outpatient psychiatric providers. After weighing the acute, chronic, and protective factors, I factory maintenance technician that the patient does not presently meet criteria for involuntary psychiatric hospitalization. I do think that the patient might benefit from additional observation and perhaps stabilization and have recommended that she remain on the unit voluntarily, but she is declining to do so and since I have no basis to retain her involuntarily, I will discharge her today with psychiatric follow-up as arranged by counselor. She is also to follow-up with primary care. I counseled the patient regarding warning signs for need to return to the psychiatric emergency room as part of a general safety plan. I have also encouraged her to pursue chemical dependency evaluation. Results Blood Pressure 122 / 58 Vital Signs Date Time Temp Pulse Resp B/P Pulse Ox O2 Delivery O2 Flow Rate FiO2 08/27/16 04:55 98.2 98 16 122/58 98 Laboratory Tests Test 08/25/16 07:42 Estimat Glomerular Filtration 70 ML/MIN (>89) Rate HDL Cholesterol 69.5 MG/DL (40.0-60.0) Laboratory Results Test 08/25/16 07:42 Hemoglobin A1c 5.3 % (4.3-6.0) Triglycerides Level 96 MG/DL (42-150) Cholesterol Level 150 MG/DL (120-200) LDL Cholesterol 61 MG/DL (0-99) HDL Cholesterol 69.5 MG/DL (40.0-60.0) Summary of Procedures None done Imaging None done Pending results at discharge: No Medications # of Antipsychotic meds at D/C: 1 Approp Antipsych med options 1 - Minimum of three failed multiple trials of monotherapy. 2 - Documented plan to taper to monotherapy due to previous use of multiple meds OR cross-taper in progress at D/C. 3 - Documentation of augmentation of Clozapine. 4 - Justification other than those listed in allowable values 1-3, document here : Discharge Discharge Date: Aug 27, 2016 Discharge Diagnosis: (1) Bipolar disorder in partial remission Diagnosis: Principal ICD Code: F31.70 (2) Alcohol use Diagnosis: Secondary (rule-out alcohol use disorder) ICD Code: Z78.9 Mental Status Exam at Disch Patient is in hospital gown. She is fairly well groomed and maintaining basic hygiene. She is awake and alert and oriented 3. No evidence of delirium. No abnormal motor movements noted. No evidence of withdrawal. Speech is within normal limits for rate, tone and volume. Mood remains somewhat down and affect is blunted. Thought process linear. No loosening of associations. No evident delusions. Denies audiovisual hallucinations. Denies suicidal or homicidal ideation. Insight and judgment are fair at best. Pt Condition on Discharge: Stable Discharge Disposition: Discharge Home Discharge Instructions Diet Instructions: As Tolerated, No Restrictions Activities you can perform: Weight Bearing as Leanne Scheduled Appointment: as per counselor's notes New Medications: Buspirone (Buspirone) 5 Mg Tab 5 MG PO TID Mental Health Days 7 Ref 3 TAB Folic Acid (Folate) 1 Mg Tab 1 MG PO DAILY Nutritional Supplement Days 30 Ref 0 TAB Olanzapine (Olanzapine) 5 Mg Tab 5 MG PO HS Mental Health Days 7 Ref 3 TAB Thiamine (Vitamin B-1) 100 Mg Tab 100 MG PO DAILY Nutritional Supplement Days 30 Ref 0 TAB Continued Medications: Acetaminophen (Tylenol) 325 Mg Cap 650 MG PO Q6H PRN PAIN SCALE 1 TO 10 Ref 0 CAP Buspirone (Buspirone) 5 Mg Tab 5 MG PO TID Anxiety Ref 0 TAB Carvedilol (Carvedilol) 12.5 Mg Tab 12.5 MG PO BID #60 Ref 0 TAB Gabapentin (Gabapentin) 800 Mg Tab 800 MG PO TID #90 Ref 0 TAB Olanzapine (Olanzapine) 5 Mg Tab 5 MG PO HS #30 Ref 0 TAB Thiamine (Vitamin B-1) 100 Mg Tab 100 MG PO DAILY Nutritional Supplement Ref 0 TAB Topiramate ER (Topiramate ER) 25 Mg Cap 25 MG PO DAILY Seizure Control #30 Ref 0 CAP Discontinued Medications: Amoxicillin (Amoxicillin) 500 Mg Cap 500 MG PO TID Infection Ref 0 CAP Amphetamine Sulfate (Evekeo) 10 Mg Tab 10 MG PO BID 1st dose on awakening; additional doses at intervals of 4-6 hrs. Avoid late evening. If treating exogenous obesity, take 30-60 min before meals. Hyperactivity Control #30 Ref 0 TAB Buspirone (Buspirone) 10 Mg Tab 10 MG PO BID Anxiety Ref 0 TAB Permethrin Topical (Permethrin Topical) 5% Cream 1 APPLIC TOPICAL ONCE Scabies #1 Ref 0 TUBE Promethazine (Phenergan) 25 Mg Tab 25 MG PO Q8HR PRN Nausea/Vomiting Ref 0 TAB Discharge Time <= 30 minutes Discharge/Advance Care Plan Health Problems: (1) Bipolar disorder (2) Alcohol use Goals to promote your health * To prevent worsening of your condition and complications * To maintain your health at the optimal level Directions to meet your goals Take your medications as prescribed Follow your dietary instruction Follow activity as directed Keep your appointments as scheduled Take your immunizations and boosters as scheduled If your symptoms worsen call your PCP, if no PCP go to Urgent Care Center or Emergency Room For 31/01 questions related to your inpatient stay or results of tests pending at discharge, please contact Dr. Medhat Perera at Smoking is Dangerous to Your Health. Avoid second hand smoking Problem Qualifiers (1) Bipolar disorder: Qualified Code: F31.4 - Bipolar disorder, current episode depressed, severe, without psychotic features (2) Bipolar disorder in partial remission: Qualified Code: F31.75 - Bipolar disorder, in partial remission, most recent episode depressed Medhat Perera MD Aug 27, 2016 13:42
[2016-08-27] MEDS ORDERED: VITA100T54 PO (14:52)
== END 2016-08-27 16:20 | disposition home or self-care (01) | DRG 885 ==
LOC: H260 05:47
PROVIDERS: ADMIT Psychiatry & Neurology Psychiatry; ATTEND Psychiatry & Neurology Psychiatry
DX: F31.75 Bipolar disorder, in partial remission, most recent episode depressed (principal); I10 Essential (primary) hypertension; B18.2 Chronic viral hepatitis C; F17.210 Nicotine dependence, cigarettes, uncomplicated; F10.10 Alcohol abuse, uncomplicated; T75.89XA Other specified effects of external causes, initial encounter; Y92.009 Unspecified place in unspecified non-institutional (private) residence as the place of occurrence of the external cause
CPT/HCPCS: 80048; 80061; 83036

== ENCOUNTER 2016-09-22 16:02 | Inpatient (IN) | payer SELFPAY ==
[~2016-09-22] VITALS: Ht 165.1 cm; Wt 67.2 kg
[~2016-09-22 16:02] MED LIST changes: +ACET1CAP18 PO; -ADDE30TA PO; -BUPR150CR PO; +BUSP5TAB PO; +FOLI1TAB4 PO; +OLAN5TAB PO; -PERM5CRE TOPICAL; +TOPI1CAP16 PO; +VITA100T2 PO; +VITA100T54 PO; -[UNRECOGNIZED DRUG - CODE] PO
[2016-09-22] MEDS ORDERED: SODIUM CHLOR 0.9% 1000 ML INJ 1,000 ML IV SCH (16:05)
[2016-09-22 16:06] VITALS: BP 116/76; PULSE 75; RESP 18; O2SAT 97
--- NOTE | 2016-09-22 16:12 | PD ---
HPI Chief Complaint: Altered Mental Status Time Seen by Provider: 16:05 Travel History International Travel<30 days: No Contact w/Intl Traveler<30days: No History of Present Illness HPI Patient [age] approximately [age]-old female presents emergency Department with altered mental status. According to EMS they were called for a patient down foaming at the mouth. They arrived and found that the patient's significant other's friend had administered 40 units of Humalog 70/30 to the patient to "help her sleep". Possible seizure-like activity on scene. GCS of 3 on EMS arrival. Extended history from EMS as the patient apparently has a history of alcohol withdrawal symptoms starting to go into withdrawals so her significant other brought her to beers to drink. She was struggling to sleep and a roommate and/ or friend suggested that she try insulin to help her sleep. She is not a diabetic. She was given allegedly 40 units of 70/30 insulin. On arrival patient is very sluggish to respond. Initial glucose on EMS arrival was 10. She did receive 2 boluses of D10, 250 cc each. Her blood glucose was checked by EMS just prior to arrival and was 80. [facility] Past Medical History Medical History: Unable to Obtain Past Surgical History Surgical History: Unable to Obtain Social History Tobacco Use: No Allergies-Medications (Allergen,Severity, Reaction): Coded Allergies: UNOBTAINABLE (Unverified , 09/22/16) Reported Meds & Prescriptions Reported Meds & Active Scripts Active Active Prescriptions or Reported Medications Unobtainable Review of Systems ROS Limitations: Altered Mental Status Physical Exam Narrative GENERAL: Well-developed well-nourished, sluggish to respond to verbal commands. SKIN: Warm and dry. There is a small abrasion on the right side of her face. HEAD: Atraumatic. Normocephalic. EYES: Pupils equal and round. No scleral icterus. No injection or drainage. ENT: No nasal bleeding or discharge. Mucous membranes pink and moist. NECK: Trachea midline. No JVD. CARDIOVASCULAR: Regular rate and rhythm. No murmur appreciated. RESPIRATORY: No accessory muscle use. Clear to auscultation. Breath sounds equal bilaterally. GASTROINTESTINAL: Abdomen soft, non-tender, nondistended. Hepatic and splenic margins not palpable. MUSCULOSKELETAL: No obvious deformities. No clubbing. No cyanosis. No edema. NEUROLOGICAL: Awake and alert moving extremities spontaneously will squeeze my hand when commanded will open eyes to pain and occasionally spontaneously. GCS( [id number])=11 . Unable to follow cranial nerve exams. Data Data Last Documented VS Vital Signs Date Time Temp Pulse Resp B/P Pulse Ox O2 Delivery O2 Flow Rate FiO2 09/22/16 17:11 82 24 115/60 95 Room Air Orders Electrocardiogram (09/22/16 16:05) Complete Blood Count With Diff (09/22/16 16:05) Comprehensive Metabolic Panel (09/22/16 16:05) Prothrombin Time / Inr (Pt) (09/22/16 16:05) Act Partial Throm Time (Ptt) (09/22/16 16:05) Troponin I (09/22/16 16:05) Thyroid Stimulating Hormone (09/22/16 16:05) Lactic Acid Sepsis Protocol (09/22/16 16:05) Urinalysis - C+S If Indicated (09/22/16 16:05) Blood Culture (09/22/16 16:05) Chest, Single Ap (09/22/16 16:05) Ct Brain W/O Iv Contrast(Rout) (09/22/16 16:05) Blood Glucose (09/22/16 16:05) Ecg Monitoring (09/22/16 16:05) Iv Access Insert/Monitor (09/22/16 16:05) Oximetry (09/22/16 16:05) Sodium Chloride 0.9% Flush (Ns Flush) (09/22/16 16:15) Sodium Chlor 0.9% 1000 Ml Inj (Ns 1000 M (09/22/16 16:05) Thiamine Inj (Thiamine Inj) (09/22/16 16:15) Drug Screen, Random Urine (09/22/16 16:05) Alcohol (Ethanol) (09/22/16 16:05) Salicylates (Aspirin) (09/22/16 16:05) Tylenol (Acetaminophen) (09/22/16 16:05) Ct Cerv Spine W/O Contrast (09/22/16 ) Urinary Catheter Management ADRIENNE.Q8H (09/22/16 16:27) Dextrose 10% Inj (D10w Inj) (09/22/16 16:45) Dextrose 50% In Nohelia (Vial) Inj (D50w (Vi (09/22/16 17:07) Dextrose 50% In Nohelia (Syr) Inj (D50w (Syr (09/22/16 17:08) Glucagon (09/22/16 17:22) Glucagon Inj (Glucagon Inj) (09/22/16 17:30) Dextrose 50% In Nohelia (Vial) Inj (D50w (Vi (09/22/16 17:35) Admit Order (Ed Use Only) (09/22/16 ) Labs Laboratory Tests Test 09/22/16 09/22/16 16:25 17:00 White Blood Count 3.9 TH/MM3 Red Blood Count 4.78 MIL/MM3 Hemoglobin 12.8 GM/DL Hematocrit 39.3 % Mean Corpuscular Volume 82.1 FL Mean Corpuscular Hemoglobin 26.8 PG Mean Corpuscular Hemoglobin 32.7 % Concent Red Cell Distribution Width 16.1 % Platelet Count 126 TH/MM3 Mean Platelet Volume 8.2 FL Neutrophils (%) (Auto) 73.3 % Lymphocytes (%) (Auto) 20.3 % Monocytes (%) (Auto) 4.3 % Eosinophils (%) (Auto) 1.5 % Basophils (%) (Auto) 0.6 % Neutrophils # (Auto) 2.8 TH/MM3 Lymphocytes # (Auto) 0.8 TH/MM3 Monocytes # (Auto) 0.2 TH/MM3 Eosinophils # (Auto) 0.1 TH/MM3 Basophils # (Auto) 0.0 TH/MM3 CBC Comment DIFF FINAL Differential Comment Prothrombin Time 11.0 SEC Prothromb Time International 1.0 RATIO Ratio Activated Partial 27.1 SEC Thromboplast Time Sodium Level 142 MEQ/L Potassium Level 3.4 MEQ/L Chloride Level 103 MEQ/L Carbon Dioxide Level 28.2 MEQ/L Anion Gap 11 MEQ/L Blood Urea Nitrogen 14 MG/DL Creatinine 0.72 MG/DL Estimat Glomerular Filtration 70 ML/MIN Rate Random Glucose 39 MG/DL Lactic Acid Level 2.3 mmol/L Calcium Level 8.6 MG/DL Total Bilirubin 0.4 MG/DL Aspartate Amino Transf 149 U/L (AST/SGOT) Alanine Aminotransferase 116 U/L (ALT/SGPT) Alkaline Phosphatase 96 U/L Troponin I LESS THAN 0.02 NG/ML Total Protein 8.4 GM/DL Albumin 4.2 GM/DL Thyroid Stimulating Hormone 1.020 uIU/ML 3rd Gen Salicylates Level 3.7 MG/DL Acetaminophen Level LESS THAN 2.0 MCG/ML Ethyl Alcohol Level 55 MG/DL Urine Color LIGHT-YELLOW Urine Turbidity CLEAR Urine pH 7.0 Urine Specific Hillman 1.007 Urine Protein NEG mg/dL Urine Glucose (UA) TRACE mg/dL Urine Ketones NEG mg/dL Urine Occult Blood NEG Urine Nitrite NEG Urine Bilirubin NEG Urine Urobilinogen LESS THAN 2.0 MG/DL Urine Leukocyte Esterase NEG Urine RBC LESS THAN 1 /hpf Urine WBC LESS THAN 1 /hpf Urine Squamous Epithelial <1 /hpf Cells Urine Mucus FEW /lpf Microscopic Urinalysis Comment CATH-CULT NOT IND Urine Opiates Screen NEG Urine Barbiturates Screen NEG Urine Amphetamines Screen POS Urine Benzodiazepines Screen NEG Urine Cocaine Screen NEG Urine Cannabinoids Screen NEG MDM Medical Decision Making Medical Screen Exam Complete: Yes Emergency Medical Condition: Yes Differential Diagnosis Insulin toxicity, insulin overdose, alcohol intoxication, suicide attempt, Narrative Course Patient was roomed in the emergency department, over the next few hours patient continued to drop her sugar multiple times. She was started on a D10 drip which at the advice of Dr. Alvarez of the ICU service was turned up to 150 mL an hour. As time has gone by she has become much more alert after given glucagon. She is now a GCS of 15. She states that she was feeling lousy and wanted to go to sleep and her friend offered her something to help her go to sleep. She states she didn't know what it was. She had a be given multiple doses of D50 throughout her stay in the emergency department as despite being on 150 cc an hour of D10 she continued to drop her blood glucose to 40s. Law enforcement has been contacted and have come and interviewed the patient. My best attempts to preserve any evidence were made by escorting her visitor to the waiting room. CT head is still pending at this time, no obvious neck injury. Critical Care Narrative Aggregate critical care time was 45 minutes. Time to perform other separately billable procedures was not included in the critical care time. My time did not include minutes spent treating any other patients simultaneously or on activities that did not directly contribute to the patient's treatment. The services I provided to this patient were to treat and/or prevent clinically significant deterioration that could result in: [, disability, organ failure. I provided critical care services requiring my management, as noted below: Chart data review, documentation time, medication orders and management, vital sign assessments/reviewing monitor data, ordering and reviewing lab tests, ordering and interpreting/reviewing x-rays and diagnostic studies, care of the patient and discussion of the patient with the admitting physicians. Diagnosis Primary Impression: Altered mental status Qualified Code: R40.2431 - Rai coma scale total score 3-8, in the field ( EMT or ambulance) Additional Impression: Hypoglycemia Admitting Information Admitting Physician Requests: Admit Scripts Unable to Obtain Active Prescriptions or Reported Meds Condition: Serious Liban Dunham MD Sep 22, 2016 16:12
[2016-09-22] MEDS ORDERED: THIAMINE INJ 100 MG in SODIUM CHLORIDE 0.9% INJ 100 ML IV ONE (16:15)
[2016-09-22] MEDS ORDERED: SODIUM CHLORIDE 0.9% FLUSH 5 ML FLUSH IVF PRN (16:15)
[2016-09-22 16:42] LABS: AUTOMATED NEUTROPHIL # 2.8 TH/MM3 (1.8-7.7); BASOPHIL % 0.6 % (0.0-2.0); EOSINOPHIL # 0.1 TH/MM3 (0-0.4); EOSINOPHIL % 1.5 % (0.0-4.0); HEMATOCRIT 39.3 % (35.0-46.0); HEMO FLAGS DIFF FINAL; LYMPH % 20.3 % (9.0-44.0); LYMPHOCYTE # 0.8 TH/MM3 (1.0-4.8); MEAN CELL VOLUME 82.1 FL (80.0-100.0); MEAN CORPUSCULAR HEMOGLOBIN 26.8 PG (27.0-34.0); MEAN CORPUSCULAR HGB CONC 32.7 % (32.0-36.0); MONO % 4.3 % (0.0-8.0); NEUT % 73.3 % (16.0-70.0); PLATELET COUNT 126 TH/MM3 (150-450); RED BLOOD COUNT 4.78 MIL/MM3 (4.00-5.30); RED CELL DISTRIBUTION WIDTH 16.1 % (11.6-17.2); WHITE BLOOD COUNT 3.9 TH/MM3 (4.0-11.0)
[2016-09-22 16:50] LABS: APTT (PATIENT) 27.1 SEC (24.3-30.1)
--- NOTE | 2016-09-22 16:59 | RADRPT ---
EXAM DATE/TIME: 09/22/2016 16:28 [place] COMPARISON: No previous studies available for comparison. INDICATIONS : Syncope, possible overdose. MEDICAL HISTORY : Unobtainable. SURGICAL HISTORY : Unobtainable. ENCOUNTER: Initial ACUITY: 1 day PAIN SCORE: Non-responsive. LOCATION: chest FINDINGS: A single view of the chest demonstrates the lungs to be symmetrically aerated without evidence of mas s, infiltrate or effusion. The cardiomediastinal contours are unremarkable. Osseous structures are intact. CONCLUSION: No acute disease. Jalil Alaniz MD on September 22, 2016 at 16:57 Board Certified Radiologist. This report was verified electronically.
[2016-09-22] MEDS ORDERED: DEXTROSE 50% IN WATER 50 ML VIAL(D50) ONE ×3 (17:07→23:05)
[2016-09-22] MEDS ORDERED: DEXTROSE 50% IN WATER 50 ML SYRINGE ONE (17:08)
[2016-09-22 17:11] VITALS: BP 115/60; PULSE 82; RESP 24; O2SAT 95
[2016-09-22 17:15] LABS: ALT (GPT) 116 U/L (10-53); ANION GAP 11 MEQ/L (5-15); AST (GOT) 149 U/L (15-37); BICARBONATE 28.2 MEQ/L (21.0-32.0); BLOOD UREA NITROGEN 14 MG/DL (7-18); CHLORIDE 103 MEQ/L (98-107); GLOMERULAR FILTRATION RATE 70 ML/MIN (>89); POTASSIUM 3.4 MEQ/L (3.5-5.1); SODIUM (NA) 142 MEQ/L (136-145)
[2016-09-22] MEDS: DEXTROSE 10% INJ 1,000 ML IV SCH (17:19)
[2016-09-22 17:25] LABS: ALKALINE PHOSPHATASE 96 U/L (45-117); TOTAL BILIRUBIN ADULT 0.4 MG/DL (0.2-1.0)
[2016-09-22 17:30] LABS: ACETAMINOPHEN LESS THAN 2.0 MCG/ML (10.0-30.0)
[2016-09-22] MEDS ORDERED: GLUCAGON 1 MG/ML VIAL IV PUSH ONE (17:30)
[2016-09-22 17:51] LABS: BLOOD, URINE NEG (NEG); GLUCOSE,URINE TRACE mg/dL (NEG); KETONE, URINE NEG (NEG); MUCUS URINE FEW /lpf (OCC); NITRITE,URINE NEG (NEG); SQUAMOUS EPITHELIAL CELL URINE <1 /hpf (0-5); URINE COLOR LIGHT-YELLOW (YELLW/STRAW)
[2016-09-22 17:52] LABS: COMMENT (UR) CATH-CULT NOT IND; CULTURE IF INDICATED CATH CULTURE NOT IND
[2016-09-22 17:56] LABS: AMPHETAMINE, URINE POS (NEG); BARBITURATES, URINE NEG (NEG); COCAINE, URINE NEG (NEG)
[2016-09-22 18:00] VITALS: BP 120/75; PULSE 70; RESP 16; O2SAT 98
[2016-09-22 18:35] LABS: LACTIC ACID GHOST NOT REPORTABLE
[2016-09-22] MEDS ORDERED: POTASSIUM CHLOR 40 MEQ PREMIX 100 ML IV PRN ×2 (19:30)
[2016-09-22] MEDS ORDERED: MISCELLANEOUS NURSING INFORMATION XX SCH (19:30)
[2016-09-22] MEDS ORDERED: POTASSIUM CHLOR 20 MEQ PREMIX 100 ML IV PRN ×2 (19:30)
[2016-09-22] MEDS ORDERED: POTASSIUM PHOSPHATE MONOBASIC 500 MG TAB PO PRN (19:30)
[2016-09-22] MEDS ORDERED: SODIUM CHLORIDE 0.9% FLUSH 5 ML FLUSH IV FLUSH PRN (19:30)
[2016-09-22] MEDS ORDERED: RESP: ALBUTEROL 2.5 MG/IPRATROPIUM 0.5 MG NEB (PRN) INH (19:30)
[2016-09-22] MEDS ORDERED: CHLORHEXIDINE GLUCONATE 2 % 1 PACK (2 CLOTHS) TOP PRN (19:30)
[2016-09-22] MEDS ORDERED: POTASSIUM PHOSPHATE INJ 30 MMOL in SODIUM CHLOR 0.9% 250 ML INJ 250 ML IV PRN (19:30)
[2016-09-22] MEDS ORDERED: MAGNESIUM SULFATE INJ 2 GM in SODIUM CHLORIDE 0.9% INJ 96 ML IV PRN (19:30)
[2016-09-22] MEDS ORDERED: POTASSIUM PHOSPHATE MONOBASIC 500 MG TAB PO/TUBE PRN (19:30)
[2016-09-22] MEDS ORDERED: ONDANSETRON HCL 4 MG/2 ML VIAL IV PRN (19:30)
[2016-09-22] MEDS ORDERED: SODIUM PHOSPHATE INJ 30 MMOL in SODIUM CHLOR 0.9% 250 ML INJ 240 ML IV PRN (19:30)
[2016-09-22] MEDS ORDERED: MAGNESIUM OXIDE 400 MG TAB PO PRN (19:30)
[2016-09-22] MEDS ORDERED: MAGNESIUM SULFATE INJ 4 GM in SODIUM CHLORIDE 0.9% INJ 92 ML IV PRN (19:30)
[2016-09-22] MEDS ORDERED: FUROSEMIDE 20 MG/2 ML VIAL IV PUSH ONE (19:30)
--- NOTE | 2016-09-22 19:34 | HHI.HP ---
[facility] Service Critical Care Medicine Primary Care Physician Admission Diagnosis Altered mental status, Persistent Hypoglycemia Diagnosis: Chief Complaint: altered mental status Travel History International Travel<30 Days: No Contact w/Intl Traveler <30 Da: No Traveled to Known Affected Are: No History of Present Illness middle aged female who arrives as a lauren mullins for altered mental status. She presented with a serum glucose of 10 by EMS. per report she wanted something for sleep and her roommate gave her 40 units of 70/30 insulin. She received a number of amps of D50 with some response, as well as gulcagon 1mg iv x 1. she became slightly more alert. on my exam, she is very somnolent, but did confirm the history that she wanted to sleep and her roommate gave her the insulin. she denies having suicidal ideations or ever wanting to hurt herself. she did not know before today that insulin could kill her. The remainder of the history is unobtainable due to her somnolence. she is currently on a d10 drip at 150cc/hr. Her laboratory data is notable for a lactate of 2.3 and UDS is positive for amphetamines and etoh level is 55. Critical care medicine is consulted to evaluate and manage her severe, life-threatening hypoglycemia. Review of Systems ROS Limitations: Altered Mental Status Past Family Social History Allergies: Coded Allergies: UNOBTAINABLE (Unverified , 09/22/16) Past Medical History unknown and unobtainable secondary to her mental status. per report, no history of diabetes. Past Surgical History unknown and unobtainable secondary to her mental status. Reported Medications unknown and unobtainable secondary to her mental status. Active Ordered Medications See MAR Family History unknown and unobtainable secondary to her mental status. Social History unknown and unobtainable secondary to her mental status. Physical Exam Vital Signs Vital Signs Date Time Temp Pulse Resp B/P Pulse Ox O2 Delivery O2 Flow Rate FiO2 09/22/16 18:00 70 16 120/75 98 Nasal Cannula 2 09/22/16 17:11 82 24 115/60 95 Room Air 09/22/16 16:06 75 18 116/76 97 Physical Exam gen: somnolent, near-obtunded middle-aged female, lying in bed. protecting airway. heent: nc. at. perrl. mucous membranes moist. +gag. neck: no jvd. trachea midline. chest: equal chest rise. clear to auscultation. cv: normal rate, regular rhythm. no appreciable murmurs. abd: soft, nontender, nondistended. no guarding. extr: no peripheral edema. distal pulses 2+ neuro: RASS -3. arousable to deep sternal rub. will sluggishly follow commands in all 4 extremities with prompting. no gross focal deficits. somnolent. Laboratory Laboratory Tests Test 09/22/16 09/22/16 16:25 17:00 White Blood Count 3.9 Red Blood Count 4.78 Hemoglobin 12.8 Hematocrit 39.3 Mean Corpuscular Volume 82.1 Mean Corpuscular Hemoglobin 26.8 Mean Corpuscular Hemoglobin 32.7 Concent Red Cell Distribution Width 16.1 Platelet Count 126 Mean Platelet Volume 8.2 Neutrophils (%) (Auto) 73.3 Lymphocytes (%) (Auto) 20.3 Monocytes (%) (Auto) 4.3 Eosinophils (%) (Auto) 1.5 Basophils (%) (Auto) 0.6 Neutrophils # (Auto) 2.8 Lymphocytes # (Auto) 0.8 Monocytes # (Auto) 0.2 Eosinophils # (Auto) 0.1 Basophils # (Auto) 0.0 CBC Comment DIFF FINAL Differential Comment Prothrombin Time 11.0 Prothromb Time International 1.0 Ratio Activated Partial 27.1 Thromboplast Time Sodium Level 142 Potassium Level 3.4 Chloride Level 103 Carbon Dioxide Level 28.2 Anion Gap 11 Blood Urea Nitrogen 14 Creatinine 0.72 Estimat Glomerular Filtration 70 Rate Random Glucose 39 Lactic Acid Level 2.3 Calcium Level 8.6 Total Bilirubin 0.4 Aspartate Amino Transf 149 (AST/SGOT) Alanine Aminotransferase 116 (ALT/SGPT) Alkaline Phosphatase 96 Troponin I LESS THAN 0.02 Total Protein 8.4 Albumin 4.2 Thyroid Stimulating Hormone 1.020 3rd Gen Salicylates Level 3.7 Acetaminophen Level LESS THAN 2.0 Ethyl Alcohol Level 55 Urine Color LIGHT-YELLOW Urine Turbidity CLEAR Urine pH 7.0 Urine Specific [place] 1.007 Urine Protein NEG Urine Glucose (UA) TRACE Urine Ketones NEG Urine Occult Blood NEG Urine Nitrite NEG Urine Bilirubin NEG Urine Urobilinogen LESS THAN 2.0 Urine Leukocyte Esterase NEG Urine RBC LESS THAN 1 Urine WBC LESS THAN 1 Urine Squamous Epithelial <1 Cells Urine Mucus FEW Microscopic Urinalysis Comment CATH-CULT NOT IND Urine Opiates Screen NEG Urine Barbiturates Screen NEG Urine Amphetamines Screen POS Urine Benzodiazepines Screen NEG Urine Cocaine Screen NEG Urine Cannabinoids Screen NEG Date/Time Procedure Status Source Growth 09/22/16 16:20 Aerobic Blood Culture Received Blood Peripheral Pending 09/22/16 16:20 Anaerobic Blood Culture Received Blood Peripheral Pending Result Diagram: 09/22/16 1625 09/22/16 1625 Imaging Last 24 hours Impressions Chest X-Ray 09/22/16 1605 Signed Impressions: Service Date/Time: Thursday, September 22, 2016 16:28 - CONCLUSION: No acute disease. Jalil Alaniz MD Assessment and Plan Assessment and Plan Assessment: middle-aged female with unknown past medical history with surreptitious insulin use and acute life-threatening hypoglycemia. Certainly her mental status, lactic acidosis as complications of her life-threatening hypoglycemia make her critically ill at this time. Active Problems: Acute, severe life-threatening hypoglycemia Metabolic Encephalopathy Lactic Acidosis Plan: --her encephalopathy is almost certainly secondary to her hypoglycemia. q1h neuro checks. --her lactic acidosis is likely secondary to anaerobic metabolism given a lack of circulating glucose. she does not have any SIRS criteria, and no suspected sources of infection. will recheck in the morning. -- increase D10 to 200cc/hr. -- continue q30m glucose checks -- D50 as needed for glucose < 60 -- lasix 10mg iv x 1 to maintain intravascular euvolemia in the setting of high volumes associated with D10. -- SCDs, SQH for DVT prophylaxis -- no evidence based indication for GI prophylaxis at this time. -- the half-life of 70/30 should be 8-12 hours. if her hypoglycemia resolves, could consider transfer out of ICU tomorrow after careful monitoring overnight. This patient remains critically ill with one or more organ systems which are or may become a threat to life. I have spent in excess of 41 minutes discontinuously in the care and management of this patient. This time is exclusive of procedures, and includes, but is not limited to, evaluation of the patient, review of the medical record, discussions with family, consultants, nursing staff, or respiratory therapy, and documentation in the medical record. Code Status Full Code Gunnar Rosenbaum MD Sep 22, 2016 19:34
[2016-09-22] MEDS: HEPARIN SODIUM - SQ 10,000 UNITS/ML VIAL SQ SCH (20:19)
--- NOTE | 2016-09-22 21:41 | RADRPT ---
EXAM DATE/TIME: 09/22/2016 21:27 [facility] COMPARISON: No previous studies available for comparison. INDICATIONS : Altered mental status. RADIATION DOSE: 56.35 CTDIvol (mGy) MEDICAL HISTORY : Non-responsive. SURGICAL HISTORY : Non-responsive. ENCOUNTER: Initial ACUITY: 1 day PAIN SCALE: Non-responsive LOCATION: cranial TECHNIQUE: Multiple contiguous axial images were obtained of the head. Using automated exposure control and adj ustment of the mA and/or kV according to patient size, radiation dose was kept as low as reasonably a chievable to obtain optimal diagnostic quality images. FINDINGS: CEREBRUM: The ventricles are normal for age. No evidence of midline shift, mass lesion, hemorrhage or acute in farction. No extra-axial fluid collections are seen. POSTERIOR FOSSA: The cerebellum and brainstem are intact. The 4th ventricle is midline. The cerebellopontine angle i s unremarkable. EXTRACRANIAL: The visualized portion of the orbits is intact. SKULL: The calvaria is intact. No evidence of skull fracture. CONCLUSION: Normal examination. Jarred Tidwell MD on September 22, 2016 at 21:39 Board Certified Radiologist. This report was verified electronically.
--- NOTE | 2016-09-22 21:48 | RADRPT ---
EXAM DATE/TIME: 09/22/2016 21:27 [facility] COMPARISON: No previous studies available for comparison. INDICATIONS : Altered mental status. RADIATION DOSE: 30.96 CTDIvol (mGy) MEDICAL HISTORY : Non-responsive. SURGICAL HISTORY : Non-responsive. ENCOUNTER: Initial ACUITY: 1 day PAIN SCALE: Non-responsive LOCATION: neck TECHNIQUE: Volumetric scanning of the cervical spine was performed. Multiplanar reconstructions in the sagittal, coronal and oblique axial planes were performed. Using automated exposure control and adjustment o f the mA and/or kV according to patient size, radiation dose was kept as low as reasonably achievable to obtain optimal diagnostic quality images. FINDINGS: There is reversal of normal cyst. Midanterior C4-C7 noted. Moderate sclerosis at C6 and C7 vertebral bodies with a moderate to severe disc space narrowing at this level and mild endplate irregularity al catherine the superior endplate of C7. This is felt to be related to severe degenerative disc disease and d iscogenic sclerosis. There is no prevertebral soft tissue swelling or compression deformity. Uncovert ebral hypertrophy at C4-5 through C6-7 noted. CONCLUSION: No fracture or listhesis. Moderate to severe degenerative changes are noted. Jarred Tidwell MD on September 22, 2016 at 21:44 Board Certified Radiologist. This report was verified electronically.
[2016-09-22] MEDS ORDERED: GLUCAGON 1 MG/ML VIAL IV ONE (23:30)
[2016-09-22] MEDS ORDERED: DEXTROSE 50% IN WATER 50 ML VIAL(D50) IV PRN (23:30)
[2016-09-22 23:41] VITALS: BP 160/84
[2016-09-23] VITALS (14 sets, daily range): BP systolic 120–152; BP diastolic 60–80; PULSE 63–102; RESP 17–20; TEMP 97.5–98.5; O2SAT 94–100
[2016-09-23] MEDS: HEPARIN SODIUM - SQ 10,000 UNITS/ML VIAL SQ SCH ×3 (03:43→20:05)
[2016-09-23] MEDS: DEXTROSE 10% INJ 1,000 ML IV SCH ×3 (03:43→23:48)
[2016-09-23] MEDS: CHLORHEXIDINE GLUCONATE 2 % 1 PACK (2 CLOTHS) TOP SCH (04:00)
[2016-09-23 05:37] LABS: HEMATOCRIT 34.5 % (35.0-46.0); MEAN CORPUSCULAR HEMOGLOBIN 27.4 PG (27.0-34.0); MEAN CORPUSCULAR HGB CONC 33.8 % (32.0-36.0); PLATELET COUNT 111 TH/MM3 (150-450); RED BLOOD COUNT 4.26 MIL/MM3 (4.00-5.30); RED CELL DISTRIBUTION WIDTH 15.9 % (11.6-17.2); REVIEW FLAG FINAL; WHITE BLOOD COUNT 4.2 TH/MM3 (4.0-11.0)
[2016-09-23 06:05] LABS: BICARBONATE 31.8 MEQ/L (21.0-32.0); POTASSIUM 3.4 MEQ/L (3.5-5.1)
--- NOTE | 2016-09-23 07:04 | HHI.CCPN ---
Subjective Remarks/Hospital Course Hospital Course: middle aged female who arrives as a lauren mullins for altered mental status. She presented with a serum glucose of 10 by EMS. per report she wanted something for sleep and her roommate gave her 40 units of 70/30 insulin. She received a number of amps of D50 with some response, as well as gulcagon 1mg iv x 1. she became slightly more alert. on my exam, she is very somnolent, but did confirm the history that she wanted to sleep and her roommate gave her the insulin. she denies having suicidal ideations or ever wanting to hurt herself. she did not know before today that insulin could kill her. The remainder of the history is unobtainable due to her somnolence. she is currently on a d10 drip at 150cc/hr. Her laboratory data is notable for a lactate of 2.3 and UDS is positive for amphetamines and etoh level is 55. Critical care medicine is consulted to evaluate and manage her severe, life-threatening hypoglycemia. Subjective: 09/23: mental status improved. passed nursing bedside swallow assessment. glucose improving, though she remains on D10W to prevent hypoglycemia. patient states she is very anxious and drinks a lot of etoh at home daily. Objective Vital Signs Date Time Temp Pulse Resp B/P Pulse Ox O2 Delivery O2 Flow Rate FiO2 09/23/16 06:00 91 09/23/16 04:00 98.0 20 120/76 99 09/22/16 18:00 Nasal Cannula 2 Intake and Output 09/22/16 09/22/16 09/23/16 08:00 16:00 00:00 Output Total 4500 ml Balance -4500 ml Result Diagram: 09/23/16 0519 09/23/16 0519 Imaging Last 24 hours Impressions Chest X-Ray 09/22/16 1605 Signed Impressions: Service Date/Time: Thursday, September 22, 2016 16:28 - CONCLUSION: No acute disease. Jalil Alaniz MD Objective Remarks gen: middle-aged female, lying in bed more awake than yesterday. heent: nc. at. perrl. mucous membranes moist. neck: no jvd. trachea midline. chest: equal chest rise. clear to auscultation. cv: normal rate, regular rhythm. no appreciable murmurs. abd: soft, nontender, nondistended. no guarding. extr: no peripheral edema. distal pulses 2+ neuro: RASS -1. fc x 4. A/P Assessment and Plan Assessment: middle-aged female who presents after surreptitious insulin use and acute life-threatening hypoglycemia. These are improving clinically. we will plan to slowly wean her d10w and continue q1h glucose checks until she is stable off dextrose. then she can be transferred to the floor with hospitalist following. Plan: 1. Anxiety, possible etoh withdraw -- Ativan 1mg iv q4h prn 2. Acute life-threatening hypoglycemia -- wean d10w by 50cc/hr as long as serum glucose remains > 100 mg/dL -- continue q1h glucose checks -- when off d10w x 4 hours with glucose > 100 mg/dL, then can transition to q4h accuchecks and can transfer to floor. 3. Intravascular Volume overload -- lasix 10mg iv x 1. -- regular basic diet. -- SCDs, SQH for DVT prophylaxis -- no evidence based indication for GI prophylaxis at this time. will consult hospitalist service. could go to the floor this afternoon pending above recommendations. Gunnar Rosenbaum MD Sep 23, 2016 07:04
[2016-09-23] MEDS ORDERED: FUROSEMIDE 20 MG/2 ML VIAL IV PUSH ONE (08:00)
[2016-09-23] MEDS: DOCUSATE SODIUM 50 MG/SENNA 8.6 MG TAB PO SCH ×2 (08:02→20:06)
[2016-09-23] MEDS: LORazepam 2 MG/ML VIAL IV PUSH PRN ×4 (08:03→20:05)
[2016-09-23] MEDS: SODIUM CHLORIDE 0.9% FLUSH 5 ML FLUSH IV FLUSH SCH ×2 (09:01→20:05)
[2016-09-23] MEDS ORDERED: FLUMAZENIL 0.5 MG/5 ML VIAL IV PUSH PRN (09:15)
[2016-09-23] MEDS: ACETAMINOPHEN/HYDROcodone 325 MG/5 MG TAB PO PRN ×2 (09:29→20:06)
--- NOTE | 2016-09-23 09:32 | PD.CONS ---
[facility] By Gunnar Rosenbaum MD. Reason for Consult Medical Management Primary Care Physician Unknown Diagnoses: (1) Hypoglycemia (2) Altered mental status History of Present Illness This is a pleasant 55 y/o Female who was brought in to ER with Altered Mental Status, with serum blood glucose in 10 after she wanted something for sleep and took 40 units of Insulin 70/30, received D50 as well as Glucagon 1mg IV x 1, became more alert, denied any ideation or suicidal thoughts, was given D10 at 150 ml per hour, UDS positive with Amphetamines and ETOH level 55, today Medical group consulted for Patient stable seen in her bedroom in Intensive Care Unit in the presence of Nurse Mr. Bains, she states what was placed in her History is accurate today also states she has 55 years old and that her Birthday is [birth year], that uses Methadone three times per week. no other complaint. Past Family Social History Allergies: Coded Allergies: UNOBTAINABLE (Unverified , 09/22/16) Past Medical History Hypertension Depression Bipolar Disorder Narcotic dependence on Methadone clinic Cervical Cancer Past Surgical History Tonsillectomy Cervical Biopsy Reported Medications Reported Meds & Active Scripts Active Active Prescriptions or Reported Medications Unobtainable The patient will bring her Home medicines to be placed in her Chart. Active Ordered Medications Current Medications Medications (Trade) Dose Ordered Sig/[place] Route Start Time Stop Time Status Last Admin (D10w Inj) 1,000 ml @ 200 mls/hr Q5H IV 09/22/16 16:45 09/23/16 03:54 Magnesium Oxide 800 mg 800 mg UNSCH PRN PO 09/22/16 19:30 Magnesium Sulfate 4 gm/Sodium Chloride 100 ml @ 50 mls/hr UNSCH PRN IV 09/22/16 19:30 Magnesium Sulfate 2 gm/Sodium Chloride 100 ml @ 50 mls/hr UNSCH PRN IV 09/22/16 19:30 Potassium Chloride 100 ml @ 50 mls/hr Q2H PRN IV 09/22/16 19:30 Potassium Chloride 100 ml @ 50 mls/hr Q2H PRN IV 09/22/16 19:30 Potassium Chloride 100 ml @ 50 mls/hr Q2H PRN IV 09/22/16 19:30 (KCl 40 Meq Premix Inj) 100 ml @ 25 mls/hr UNSCH PRN IV 09/22/16 19:30 (K-Phos) 2,000 mg Q4H PRN PO 09/22/16 19:30 Potassium Phosphate 2000 mg 2,000 mg UNSCH PRN PO/TUBE 09/22/16 19:30 Potassium Phosphate 30 mmol/ Sodium Chloride 260 ml @ 42 mls/hr UNSCH PRN IV 09/22/16 19:30 (Sodium Phosphate Inj/NS 250 ml Inj) 250 ml @ 42 mls/hr UNSCH PRN IV 09/22/16 19:30 (NS Flush) 2 ml UNSCH PRN IV FLUSH 09/22/16 19:30 (NS Flush) 2 ml BID IV FLUSH 09/22/16 21:00 09/23/16 09:01 (Zofran Inj) 4 mg Q6H PRN IV 09/22/16 19:30 (Julia-Colace) 2 tab BID PO 09/22/16 21:00 09/23/16 08:02 (Heparin Inj) 5,000 units Q8H SQ 09/22/16 19:30 09/23/16 03:43 Miscellaneous Information 1 Q361D XX 09/22/16 19:30 (Chlorhexidine 2% Cloth) 3 pack Taper DAILY@04 TOP 09/23/16 04:00 09/19/17 03:59 09/23/16 04:00 (Chlorhexidine 2% Cloth) 3 pack UNSCH PRN TOP 09/22/16 19:30 (D50w (Vial) Inj) 25 ml UNSCH PRN IV 09/22/16 23:30 (Ativan Inj) 1 mg Q4H PRN IV PUSH 09/23/16 07:00 09/23/16 08:03 Family History Asked to the patient and denied. Social History Lives with Roommates and smokes one pack of cigarettes daily since she was 19 years old, drinks three beers or wine glasses daily and denies other toxic habits. Physical Exam Vital Signs Vital Signs Date Time Temp Pulse Resp B/P Pulse Ox O2 Delivery O2 Flow Rate FiO2 09/23/16 06:00 91 09/23/16 04:00 77 09/23/16 04:00 98.0 77 20 120/76 99 09/23/16 02:00 63 09/23/16 00:00 97.5 80 20 152/71 100 09/23/16 00:00 80 09/22/16 23:41 55 16 160/84 100 09/22/16 18:00 70 16 120/75 98 Nasal Cannula 2 09/22/16 17:11 82 24 115/60 95 Room Air 09/22/16 16:06 75 18 116/76 97 Physical Exam GENERAL: This is a well-nourished, well-developed patient, in no apparent distress. SKIN: No rashes, ecchymoses or lesions. Cool and dry. HEAD: Atraumatic. Normocephalic. No temporal or scalp tenderness. EYES: Pupils equal round and reactive. Extraocular motions intact. No scleral icterus. No injection or drainage. ENT: Nose without bleeding, purulent drainage or septal hematoma. Throat without erythema, tonsillar hypertrophy or exudate. Uvula midline. Airway patent. NECK: Trachea midline. No JVD or lymphadenopathy. Supple, nontender, no meningeal signs. CARDIOVASCULAR: Regular rate and rhythm without murmurs, gallops, or rubs. RESPIRATORY: Clear to auscultation. Breath sounds equal bilaterally. No wheezes , rales, or rhonchi. GASTROINTESTINAL: Abdomen soft, non-tender, nondistended. No hepato-splenomegaly , or palpable masses. No guarding. MUSCULOSKELETAL: Extremities without clubbing, cyanosis, or edema. No joint tenderness, effusion, or edema noted. No calf tenderness. Negative Homans sign bilaterally. NEUROLOGICAL: Awake and alert. Cranial nerves II through XII intact. Motor and sensory grossly within normal limits. Five out of 5 muscle strength in all muscle groups. Normal speech. Laboratory Laboratory Tests Test 09/22/16 09/22/16 09/22/16 09/23/16 16:25 17:00 20:22 00:00 White Blood Count 3.9 Red Blood Count 4.78 Hemoglobin 12.8 Hematocrit 39.3 Mean Corpuscular Volume 82.1 Mean Corpuscular Hemoglobin 26.8 Mean Corpuscular Hemoglobin 32.7 Concent Red Cell Distribution Width 16.1 Platelet Count 126 Mean Platelet Volume 8.2 Neutrophils (%) (Auto) 73.3 Lymphocytes (%) (Auto) 20.3 Monocytes (%) (Auto) 4.3 Eosinophils (%) (Auto) 1.5 Basophils (%) (Auto) 0.6 Neutrophils # (Auto) 2.8 Lymphocytes # (Auto) 0.8 Monocytes # (Auto) 0.2 Eosinophils # (Auto) 0.1 Basophils # (Auto) 0.0 CBC Comment DIFF FINAL Differential Comment Prothrombin Time 11.0 Prothromb Time International 1.0 Ratio Activated Partial 27.1 Thromboplast Time Sodium Level 142 Potassium Level 3.4 Chloride Level 103 Carbon Dioxide Level 28.2 Anion Gap 11 Blood Urea Nitrogen 14 Creatinine 0.72 Estimat Glomerular Filtration 70 Rate Random Glucose 39 Lactic Acid Level 2.3 1.2 Calcium Level 8.6 Total Bilirubin 0.4 Aspartate Amino Transf 149 (AST/SGOT) Alanine Aminotransferase 116 (ALT/SGPT) Alkaline Phosphatase 96 Troponin I LESS THAN 0.02 Total Protein 8.4 Albumin 4.2 Thyroid Stimulating Hormone 1.020 3rd Gen Salicylates Level 3.7 Acetaminophen Level LESS THAN 2.0 Ethyl Alcohol Level 55 Urine Color LIGHT-YELLOW Urine Turbidity CLEAR Urine pH 7.0 Urine Specific [place] 1.007 Urine Protein NEG Urine Glucose (UA) TRACE Urine Ketones NEG Urine Occult Blood NEG Urine Nitrite NEG Urine Bilirubin NEG Urine Urobilinogen LESS THAN 2.0 Urine Leukocyte Esterase NEG Urine RBC LESS THAN 1 Urine WBC LESS THAN 1 Urine Squamous Epithelial <1 Cells Urine Mucus FEW Microscopic Urinalysis Comment CATH-CULT NOT IND Urine Opiates Screen NEG Urine Barbiturates Screen NEG Urine Amphetamines Screen POS Urine Benzodiazepines Screen NEG Urine Cocaine Screen NEG Urine Cannabinoids Screen NEG Nasal Screen MRSA (PCR) NEGATIVE Test 09/23/16 05:19 White Blood Count 4.2 Red Blood Count 4.26 Hemoglobin 11.7 Hematocrit 34.5 Mean Corpuscular Volume 81.0 Mean Corpuscular Hemoglobin 27.4 Mean Corpuscular Hemoglobin 33.8 Concent Red Cell Distribution Width 15.9 Platelet Count 111 Mean Platelet Volume 7.7 Sodium Level 141 Potassium Level 3.4 Chloride Level 102 Carbon Dioxide Level 31.8 Anion Gap 7 Blood Urea Nitrogen 11 Creatinine 0.65 Estimat Glomerular Filtration 79 Rate Random Glucose 89 Lactic Acid Level 1.1 Calcium Level 8.2 Date/Time Procedure Status Source Growth 09/22/16 16:20 Aerobic Blood Culture Received Blood Peripheral Pending 09/22/16 16:20 Anaerobic Blood Culture Received Blood Peripheral Pending Result Diagram: 09/23/16 0519 09/23/16 0519 Imaging Last Impressions Head CT 09/22/16 1605 Signed Impressions: Service Date/Time: Thursday, September 22, 2016 21:27 - CONCLUSION: Normal examination. Jarred Tidwell MD Chest X-Ray 09/22/16 1605 Signed Impressions: Service Date/Time: Thursday, September 22, 2016 16:28 - CONCLUSION: No acute disease. Jalil Alaniz MD Cervical Spine CT 09/22/16 0000 Signed Impressions: Service Date/Time: Thursday, September 22, 2016 21:27 - CONCLUSION: No fracture or listhesis. Moderate to severe degenerative changes are noted. Jarred Tidwell MD Assessment and Plan Assessment and Plan 1. Acute life threatening Hypoglycemia secondary to self Insulin injection in a non Diabetic patient at this time in Intensive Care unit managed by Chip Mixing Machine Operator seen already today and continue D10 General diet and Titrate to discontinue D10 2. Acute Metabolic Encephalopathy secondary to #1 Improved 3. Tobacco dependence strongly recommended to stop smoking 4. Alcohol abuse on CIWA protocol Ativan, Thiamine, Folic acid and Multivitamins 5. Polysubstance abuse, UDS positive for Amphetamines, also in on Methadone clinic uses Methadone three times a week. 6. Hypertension controlled on no anti hypertensives 7. Bipolar Disorder/Depression she will bring her Home medicines. DVT prophylaxis with Heparin Code Status Full code Discussed Condition With Patient and Nurse Mr. Bains in the room Problem Qualifiers (1) Altered mental status: Qualified Code: R40.2431 - Rai coma scale total score 3-8, in the field ( EMT or ambulance) Kris Ashley MD Sep 23, 2016 09:32
[2016-09-23] MEDS: guaiFENesin E.R. 600 MG TAB PO SCH ×2 (09:59→20:06)
[2016-09-23] MEDS ORDERED: POTASSIUM CHLORIDE 20 MEQ CONTROLLED RELEASE TAB PO ONE (10:00)
[2016-09-23 12:28] LABS: MAGNESIUM 1.9 MG/DL (1.5-2.5)
[2016-09-23] MEDS: RESP: ALBUTEROL 2.5 MG/IPRATROPIUM 0.5 MG NEB (SCH) NEB ×2 (14:00→20:04)
--- NOTE | 2016-09-23 14:02 | EKG ---
Date Performed: 09/22/2016 Time Performed: 16:38:00 PTAGE: 89 years EKG: Sinus rhythm PROLONGED QT INTERVAL ABNORMAL ECG INTERPRETATION BASED ON A DEFAULT AGE OF 42 YEARS NO PREVIOUS TRACING DOCTOR: Hong Ferrara Interpretating Date/Time 09/23/2016 13:56:02
[2016-09-23] MEDS: THIAMINE INJ 100 MG in SODIUM CHLORIDE 0.9% INJ 100 ML IV SCH (14:31)
[2016-09-24] VITALS (8 sets, daily range): BP systolic 121–134; BP diastolic 66–79; PULSE 78–93; RESP 14–20; TEMP 98.2–98.7; O2SAT 95–98
[2016-09-24] MEDS: LORazepam 2 MG/ML VIAL IV PUSH PRN ×3 (00:07→07:59)
[2016-09-24] MEDS: ACETAMINOPHEN/HYDROcodone 325 MG/5 MG TAB PO PRN ×3 (00:08→08:00)
[2016-09-24] MEDS: CHLORHEXIDINE GLUCONATE 2 % 1 PACK (2 CLOTHS) TOP SCH (04:03)
[2016-09-24] MEDS: DEXTROSE 10% INJ 1,000 ML IV SCH (04:04)
[2016-09-24] MEDS: HEPARIN SODIUM - SQ 10,000 UNITS/ML VIAL SQ SCH ×2 (04:09→12:06)
[2016-09-24 05:21] LABS: HEMATOCRIT 37.3 % (35.0-46.0); MEAN CELL VOLUME 82.2 FL (80.0-100.0); MEAN CORPUSCULAR HEMOGLOBIN 26.4 PG (27.0-34.0); MEAN CORPUSCULAR HGB CONC 32.1 % (32.0-36.0); PLATELET COUNT 116 TH/MM3 (150-450); RED BLOOD COUNT 4.54 MIL/MM3 (4.00-5.30); RED CELL DISTRIBUTION WIDTH 16.2 % (11.6-17.2); REVIEW FLAG FINAL; WHITE BLOOD COUNT 5.3 TH/MM3 (4.0-11.0)
[2016-09-24 05:46] LABS: BICARBONATE 30.8 MEQ/L (21.0-32.0); POTASSIUM 4.2 MEQ/L (3.5-5.1)
[2016-09-24] MEDS: guaiFENesin E.R. 600 MG TAB PO SCH (08:00)
[2016-09-24] MEDS: DOCUSATE SODIUM 50 MG/SENNA 8.6 MG TAB PO SCH (08:00)
[2016-09-24] MEDS: RESP: ALBUTEROL 2.5 MG/IPRATROPIUM 0.5 MG NEB (SCH) NEB ×2 (08:00→13:50)
[2016-09-24] MEDS: SODIUM CHLORIDE 0.9% FLUSH 5 ML FLUSH IV FLUSH SCH (08:00)
--- NOTE | 2016-09-24 08:56 | HHI.PR ---
Subjective Remarks This is a pleasant 55 y/o Female who was brought in to ER with Altered Mental Status, with serum blood glucose in 10 after she wanted something for sleep and took 40 units of Insulin 70/30, received D50 as well as Glucagon 1mg IV x 1, became more alert, denied any ideation or suicidal thoughts, was given D10 at 150 ml per hour, UDS positive with Amphetamines and ETOH level 55, today Medical group consulted for Patient stable seen in her bedroom in Intensive Care Unit in the presence of Nurse Ruth Herson, she states what was placed in her History is accurate today also states she has 55 years old and that her Birthday is [birth year], that uses Methadone three times per week. no other complaint. patient seen in her bedroom she is not been using anti hypertensives while in house and her blood pressure is been stable will need to follow with her Primary Care Physician and re evaluate blood pressure. Objective Vital Signs Date Time Temp Pulse Resp B/P Pulse Ox O2 Delivery O2 Flow Rate FiO2 09/24/16 08:00 85 09/24/16 08:00 98.6 85 17 130/66 95 09/24/16 06:00 79 09/24/16 05:09 17 09/24/16 04:00 93 09/24/16 04:00 98.3 93 20 121/79 95 09/24/16 02:00 92 09/24/16 00:00 83 09/24/16 00:00 98.7 83 20 132/76 98 09/23/16 22:00 102 09/23/16 20:04 95 21 09/23/16 20:00 94 09/23/16 20:00 98.2 94 17 137/80 94 09/23/16 18:00 101 09/23/16 16:00 98.5 80 18 127/66 99 09/23/16 16:00 80 09/23/16 14:00 95 09/23/16 12:00 72 09/23/16 12:00 98.1 72 17 133/69 94 09/23/16 10:00 91 09/23/16 09:46 95 Nasal Cannula 2.00 I/O 09/23/16 09/23/16 09/23/16 09/24/16 09/24/16 09/24/16 07:00 15:00 23:00 07:00 15:00 23:00 Intake Total 2836 ml 930 ml 715 ml 250 ml Output Total 1600 ml 2150 ml 1700 ml 900 ml Balance 1236 ml -1220 ml -985 ml -650 ml Intake Oral 240 ml 380 ml 700 ml 240 ml IV Total 2596 ml 550 ml 15 ml 10 ml Output Urine Total 1600 ml 2150 ml 1700 ml 900 ml # Bowel Movements 1 0 0 Result Diagram: 09/24/16 0420 09/24/16 0420 Imaging Last Impressions Head CT 09/22/16 1605 Signed Impressions: Service Date/Time: Thursday, September 22, 2016 21:27 - CONCLUSION: Normal examination. Jarred Tidwell MD Chest X-Ray 09/22/16 1605 Signed Impressions: Service Date/Time: Thursday, September 22, 2016 16:28 - CONCLUSION: No acute disease. Jalil Alaniz MD Cervical Spine CT 09/22/16 0000 Signed Impressions: Service Date/Time: Thursday, September 22, 2016 21:27 - CONCLUSION: No fracture or listhesis. Moderate to severe degenerative changes are noted. Jarred Tidwell MD Procedures No procedures performed. Other Results Laboratory Tests Test 09/22/16 09/22/16 09/23/16 09/23/16 16:25 17:00 00:00 05:19 Neutrophils (%) (Auto) 73.3 % Lymphocytes (%) (Auto) 20.3 % Monocytes (%) (Auto) 4.3 % Eosinophils (%) (Auto) 1.5 % Basophils (%) (Auto) 0.6 % Neutrophils # (Auto) 2.8 TH/MM3 Lymphocytes # (Auto) 0.8 TH/MM3 Monocytes # (Auto) 0.2 TH/MM3 Eosinophils # (Auto) 0.1 TH/MM3 Basophils # (Auto) 0.0 TH/MM3 CBC Comment DIFF FINAL Differential Comment Prothrombin Time 11.0 SEC Prothromb Time International 1.0 RATIO Ratio Activated Partial 27.1 SEC Thromboplast Time Total Bilirubin 0.4 MG/DL Aspartate Amino Transf 149 U/L (AST/SGOT) Alanine Aminotransferase 116 U/L (ALT/SGPT) Alkaline Phosphatase 96 U/L Troponin I LESS THAN 0.02 NG/ML Total Protein 8.4 GM/DL Albumin 4.2 GM/DL Thyroid Stimulating Hormone 1.020 uIU/ML 3rd Gen Salicylates Level 3.7 MG/DL Acetaminophen Level LESS THAN 2.0 MCG/ML Ethyl Alcohol Level 55 MG/DL Urine Color LIGHT-YELLOW Urine Turbidity CLEAR Urine pH 7.0 Urine Specific [place] 1.007 Urine Protein NEG mg/dL Urine Glucose (UA) TRACE mg/dL Urine Ketones NEG mg/dL Urine Occult Blood NEG Urine Nitrite NEG Urine Bilirubin NEG Urine Urobilinogen LESS THAN 2.0 MG/DL Urine Leukocyte Esterase NEG Urine RBC LESS THAN 1 /hpf Urine WBC LESS THAN 1 /hpf Urine Squamous Epithelial <1 /hpf Cells Urine Mucus FEW /lpf Microscopic Urinalysis Comment CATH-CULT NOT IND Urine Opiates Screen NEG Urine Barbiturates Screen NEG Urine Amphetamines Screen POS Urine Benzodiazepines Screen NEG Urine Cocaine Screen NEG Urine Cannabinoids Screen NEG Nasal Screen MRSA (PCR) NEGATIVE Lactic Acid Level 1.1 mmol/L Test 09/23/16 09/24/16 11:21 04:20 Phosphorus Level 3.0 MG/DL Magnesium Level 1.9 MG/DL White Blood Count 5.3 TH/MM3 Red Blood Count 4.54 MIL/MM3 Hemoglobin 12.0 GM/DL Hematocrit 37.3 % Mean Corpuscular Volume 82.2 FL Mean Corpuscular Hemoglobin 26.4 PG Mean Corpuscular Hemoglobin 32.1 % Concent Red Cell Distribution Width 16.2 % Platelet Count 116 TH/MM3 Mean Platelet Volume 7.9 FL Sodium Level 140 MEQ/L Potassium Level 4.2 MEQ/L Chloride Level 102 MEQ/L Carbon Dioxide Level 30.8 MEQ/L Anion Gap 7 MEQ/L Blood Urea Nitrogen 10 MG/DL Creatinine 0.88 MG/DL Estimat Glomerular Filtration 67 ML/MIN Rate Random Glucose 106 MG/DL Calcium Level 8.7 MG/DL Objective Remarks GENERAL: This is a well-nourished, well-developed patient, in no apparent distress. SKIN: No rashes, ecchymoses or lesions. Cool and dry. HEAD: Atraumatic. Normocephalic. No temporal or scalp tenderness. EYES: Pupils equal round and reactive. Extraocular motions intact. No scleral icterus. No injection or drainage. ENT: Nose without bleeding, purulent drainage or septal hematoma. Throat without erythema, tonsillar hypertrophy or exudate. Uvula midline. Airway patent. NECK: Trachea midline. No JVD or lymphadenopathy. Supple, nontender, no meningeal signs. CARDIOVASCULAR: Regular rate and rhythm without murmurs, gallops, or rubs. RESPIRATORY: Clear to auscultation. Breath sounds equal bilaterally. No wheezes , rales, or rhonchi. GASTROINTESTINAL: Abdomen soft, non-tender, nondistended. No hepato-splenomegaly , or palpable masses. No guarding. MUSCULOSKELETAL: Extremities without clubbing, cyanosis, or edema. No joint tenderness, effusion, or edema noted. No calf tenderness. Negative Homans sign bilaterally. NEUROLOGICAL: Awake and alert. Cranial nerves II through XII intact. Motor and sensory grossly within normal limits. Five out of 5 muscle strength in all muscle groups. Normal speech. Medications and IVs Current Medications Medications (Trade) Dose Ordered Sig/[place] Route Start Time Stop Time Status Last Admin (D10w Inj) 1,000 ml @ 200 mls/hr Q5H IV 09/22/16 16:45 09/23/16 03:54 Magnesium Oxide 800 mg 800 mg UNSCH PRN PO 09/22/16 19:30 Magnesium Sulfate 4 gm/Sodium Chloride 100 ml @ 50 mls/hr UNSCH PRN IV 09/22/16 19:30 Magnesium Sulfate 2 gm/Sodium Chloride 100 ml @ 50 mls/hr UNSCH PRN IV 09/22/16 19:30 Potassium Chloride 100 ml @ 50 mls/hr Q2H PRN IV 09/22/16 19:30 Potassium Chloride 100 ml @ 50 mls/hr Q2H PRN IV 09/22/16 19:30 Potassium Chloride 100 ml @ 50 mls/hr Q2H PRN IV 09/22/16 19:30 (KCl 40 Meq Premix Inj) 100 ml @ 25 mls/hr UNSCH PRN IV 09/22/16 19:30 (K-Phos) 2,000 mg Q4H PRN PO 09/22/16 19:30 Potassium Phosphate 2000 mg 2,000 mg UNSCH PRN PO/TUBE 09/22/16 19:30 Potassium Phosphate 30 mmol/ Sodium Chloride 260 ml @ 42 mls/hr UNSCH PRN IV 09/22/16 19:30 (Sodium Phosphate Inj/NS 250 ml Inj) 250 ml @ 42 mls/hr UNSCH PRN IV 09/22/16 19:30 (NS Flush) 2 ml UNSCH PRN IV FLUSH 09/22/16 19:30 (NS Flush) 2 ml BID IV FLUSH 09/22/16 21:00 09/24/16 08:00 (Zofran Inj) 4 mg Q6H PRN IV 09/22/16 19:30 (Julia-Colace) 2 tab BID PO 09/22/16 21:00 09/24/16 08:00 (Heparin Inj) 5,000 units Q8H SQ 09/22/16 19:30 09/24/16 04:09 Miscellaneous Information 1 Q361D XX 09/22/16 19:30 (Chlorhexidine 2% Cloth) 3 pack Taper DAILY@04 TOP 09/23/16 04:00 09/19/17 03:59 09/24/16 04:03 (Chlorhexidine 2% Cloth) 3 pack UNSCH PRN TOP 09/22/16 19:30 (D50w (Vial) Inj) 25 ml UNSCH PRN IV 09/22/16 23:30 (Ativan Inj) 1 mg Q4H PRN IV PUSH 09/23/16 07:00 09/24/16 07:59 (Mucinex Er) 600 mg BID PO 09/23/16 10:00 09/24/16 08:00 Acetaminophen/ Hydrocodone Bitart 1 tab 1 tab Q4H PRN PO 09/23/16 09:15 09/24/16 08:00 (Thiamine Inj/NS Inj) 101 ml @ 100 mls/hr Q24H IV 09/23/16 13:00 09/26/16 12:59 09/23/16 14:31 (Vitamin B1) 100 mg DAILY PO 09/27/16 09:00 (Romazicon Inj) 0.2 mg Q1M PRN IV PUSH 09/23/16 09:15 (Ativan Inj) 1 mg Q4H PRN IV PUSH 09/23/16 09:15 09/23/16 20:05 A/P Assessment and Plan 1. Acute life threatening Hypoglycemia secondary to self Insulin injection in a non Diabetic patient at this time in Intensive Care unit, stable no further Hypoglycemia, is important to say that the patient did not need to harm herself. 2. Acute Metabolic Encephalopathy secondary to #1 Improved 3. Tobacco dependence strongly recommended to stop smoking 4. Alcohol abuse on [facility] protocol Ativan, Thiamine, Folic acid and Multivitamins 5. Polysubstance abuse, UDS positive for Amphetamines, also in on Methadone clinic uses Methadone three times a week. 6. Hypertension controlled on no anti hypertensives will hold on Coreg on discharge and follow her blood pressure by PCP 7. Bipolar Disorder/Depression recommended to continue home medicines at discharge DVT prophylaxis with Heparin Code Status Full code Discharge Planning Discharge Home Kris Ashley MD Sep 24, 2016 08:56
--- NOTE | 2016-09-24 12:06 | HHI.DS ---
Discharge Summary Admission Date Sep 22, 2016 at 17:45 Discharge Date: Sep 24, 2016 Admitting Diagnosis Altered mental status, Persistent Hypoglycemia (1) Hypoglycemia ICD Code: E16.2 (2) Altered mental status ICD Code: R41.82 Diagnosis: Principal Procedures No procedures performed Brief History - From Admission This is a pleasant 55 y/o Female who was brought in to ER with Altered Mental Status, with serum blood glucose in 10 after she wanted something for sleep and took 40 units of Insulin 70/30, received D50 as well as Glucagon 1mg IV x 1, became more alert, denied any ideation or suicidal thoughts, was given D10 at 150 ml per hour, UDS positive with Amphetamines and ETOH level 55, today Medical group consulted for Patient stable seen in her bedroom in Intensive Care Unit in the presence of Nurse Mr. Bains, she states what was placed in her History is accurate today also states she has 55 years old and that her Birthday is [birth year], that uses Methadone three times per week. no other complaint. CBC/BMP: 09/24/16 0420 09/24/16 0420 Significant Findings Laboratory Tests Test 09/22/16 09/22/16 09/23/16 09/24/16 16:25 17:00 05:19 04:20 White Blood Count 3.9 TH/MM3 (4.0-11.0) Mean Corpuscular Hemoglobin 26.8 PG 26.4 PG (27.0-34.0) (27.0-34.0) Platelet Count 126 TH/MM3 111 TH/MM3 116 TH/MM3 (150-450) (150-450) (150-450) Neutrophils (%) (Auto) 73.3 % (16.0-70.0) Lymphocytes # (Auto) 0.8 TH/MM3 (1.0-4.8) Potassium Level 3.4 MEQ/L 3.4 MEQ/L (3.5-5.1) (3.5-5.1) Estimat Glomerular Filtration 70 ML/MIN (>89) 79 ML/MIN (>89) 67 ML/MIN (>89) Rate Random Glucose 39 MG/DL (74-106) Lactic Acid Level 2.3 mmol/L (0.4-2.0) Aspartate Amino Transf 149 U/L (15-37) (AST/SGOT) Alanine Aminotransferase 116 U/L (10-53) (ALT/SGPT) Troponin I LESS THAN 0.02 NG/ML (0.02-0.05) Total Protein 8.4 GM/DL (6.4-8.2) Acetaminophen Level LESS THAN 2.0 MCG/ML (10.0-30.0) Ethyl Alcohol Level 55 MG/DL (0-5) Urine Mucus FEW /lpf (OCC) Urine Amphetamines Screen POS (NEG) Hematocrit 34.5 % (35.0-46.0) Calcium Level 8.2 MG/DL (8.5-10.1) Imaging Last Impressions Head CT 09/22/16 1605 Signed Impressions: Service Date/Time: Thursday, September 22, 2016 21:27 - CONCLUSION: Normal examination. Jarred Tidwell MD Chest X-Ray 09/22/16 1605 Signed Impressions: Service Date/Time: Thursday, September 22, 2016 16:28 - CONCLUSION: No acute disease. Jalil Alaniz MD Cervical Spine CT 09/22/16 0000 Signed Impressions: Service Date/Time: Thursday, September 22, 2016 21:27 - CONCLUSION: No fracture or listhesis. Moderate to severe degenerative changes are noted. Jarred Tidwell MD PE at Discharge GENERAL: This is a well-nourished, well-developed patient, in no apparent distress. SKIN: No rashes, ecchymoses or lesions. Cool and dry. HEAD: Atraumatic. Normocephalic. No temporal or scalp tenderness. EYES: Pupils equal round and reactive. Extraocular motions intact. No scleral icterus. No injection or drainage. ENT: Nose without bleeding, purulent drainage or septal hematoma. Throat without erythema, tonsillar hypertrophy or exudate. Uvula midline. Airway patent. NECK: Trachea midline. No JVD or lymphadenopathy. Supple, nontender, no meningeal signs. CARDIOVASCULAR: Regular rate and rhythm without murmurs, gallops, or rubs. RESPIRATORY: Clear to auscultation. Breath sounds equal bilaterally. No wheezes , rales, or rhonchi. GASTROINTESTINAL: Abdomen soft, non-tender, nondistended. No hepato-splenomegaly , or palpable masses. No guarding. MUSCULOSKELETAL: Extremities without clubbing, cyanosis, or edema. No joint tenderness, effusion, or edema noted. No calf tenderness. Negative Homans sign bilaterally. NEUROLOGICAL: Awake and alert. Cranial nerves II through XII intact. Motor and sensory grossly within normal limits. Five out of 5 muscle strength in all muscle groups. Normal speech. Hospital Course This is a pleasant 55 y/o Female who was brought in to ER with Altered Mental Status, with serum blood glucose in 10 after she wanted something for sleep and took 40 units of Insulin 70/30, received D50 as well as Glucagon 1mg IV x 1, became more alert, denied any ideation or suicidal thoughts, was given D10 at 150 ml per hour, UDS positive with Amphetamines and ETOH level 55, today Medical group consulted for Patient stable seen in her bedroom in Intensive Care Unit in the presence of Nurse Mr. Bains, she states what was placed in her History is accurate today also states she has 55 years old and that her Birthday is [birth year], that uses Methadone three times per week. no other complaint. patient seen in her bedroom she is not been using anti hypertensives while in house and her blood pressure is been stable will need to follow with her Primary Care Physician and re evaluate blood pressure. Assessment and Plan 1. Acute life threatening Hypoglycemia secondary to self Insulin injection in a non Diabetic patient at this time in Intensive Care unit, stable no further Hypoglycemia, is important to say that the patient did not need to harm herself. 2. Acute Metabolic Encephalopathy secondary to #1 Improved 3. Tobacco dependence strongly recommended to stop smoking 4. Alcohol abuse on [facility] protocol Ativan, Thiamine, Folic acid and Multivitamins 5. Polysubstance abuse, UDS positive for Amphetamines, also in on Methadone clinic uses Methadone three times a week. 6. Hypertension controlled on no anti hypertensives will hold on Coreg on discharge and follow her blood pressure by PCP 7. Bipolar Disorder/Depression recommended to continue home medicines at discharge DVT prophylaxis with Heparin Code Status Full code Discharge Planning Discharge Home Pt Condition on Discharge: Good Discharge Disposition: Discharge Home Discharge Time: <= 30 minutes Discharge Instructions DIET: Follow Instructions for: Heart Healthy Diet Activities you can perform: Regular-No Restrictions Kris Ashley MD Sep 24, 2016 12:06
[2016-09-24] MEDS: THIAMINE INJ 100 MG in SODIUM CHLORIDE 0.9% INJ 100 ML IV SCH (13:00)
[2016-09-27] MEDS ORDERED: THIAMINE HCL 100 MG TAB PO SCH (09:00)
== END 2016-09-24 16:45 | disposition home or self-care (01) | DRG 917 ==
LOC: NEPC 16:02 → NEDA 17:45 → MERGE 17:45 → UNDOADMIN 17:45 → EDBD 17:45 → NEDH 17:45 → HIMN 23:50
PROVIDERS: ADMIT Internal Medicine; ATTEND Internal Medicine
DX: T38.3X1A Poisoning by insulin and oral hypoglycemic [antidiabetic] drugs, accidental (unintentional), initial encounter (principal); G93.41 Metabolic encephalopathy; E87.2 Acidosis; E16.1 Other hypoglycemia; Y92.9 Unspecified place or not applicable; Y90.2 Blood alcohol level of 40-59 mg/100 ml; I10 Essential (primary) hypertension; F31.9 Bipolar disorder, unspecified; F11.90 Opioid use, unspecified, uncomplicated; Z85.41 Personal history of malignant neoplasm of cervix uteri; F17.210 Nicotine dependence, cigarettes, uncomplicated; F41.9 Anxiety disorder, unspecified; E87.70 Fluid overload, unspecified; F10.10 Alcohol abuse, uncomplicated
CPT/HCPCS: 51702; 70450; 71010; 72125; 80048; 80053; 80307; 81001; 82943; 82948; 83605; 83735; 84100; 84443; 84484; 85025; 85027; 85610; 85730; 87040; 87641; 93005; 94667; 96365; 96367; 96374; 96375; J1610; J1644; J1940; J2060; J3411; J7030

== ENCOUNTER 2016-10-23 13:02 | Emergency (ER) | payer SELFPAY ==
[~2016-10-23 13:02] MED LIST changes: -CARV12.52 PO
[2016-10-23 13:04] VITALS: BP 133/60; PULSE 80; RESP 18; TEMP 98.8; O2SAT 98
[2016-10-23] MEDS ORDERED: PRED50 PO (13:57)
[2016-10-23] MEDS ORDERED: PERM5CRE TOPICAL (13:57)
--- NOTE | 2016-10-23 13:57 | PD ---
HPI . coughing and itchy rash Chief Complaint: Cold / Flu Symptoms Time Seen by Provider: 13:52 Travel History International Travel<30 days: No Contact w/Intl Traveler<30days: No Traveled to known affect area: No History of Present Illness HPI 55-year-old female with history of alcohol abuse here with complaints of coughing for the past 3-4 days. She is also complaining of an itchy rash randomly dispersed on her body for about a week. Patient tells me that she's been coughing intermittently for the past 3-4 days. She denies any fever or chills. She denies any cold symptoms. She is a smoker. She is also complaining of itchy rash randomly dispersed on her body. The main affected areas are her shoulders, back and on her left arm. She tells me that she is staying with a leslie who recently took in a homeless girl and she caught the rash after the girl moved in. She tells me that it's extremely itchy. She denies any exposure to new hygiene products. She denies ingestion of any new foods. She denies any shortness of breath or angioedema. PFSH Past Medical History Blood Disorders: No Bipolar Disorder: Yes Anxiety: Yes Depression: Yes Heart Rhythm Problems: No Cancer: Yes (lesions found on her brain/skull as per pt. 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) Thyroid Disease: No ?: Not Menopausal: Yes : 5 Para: 4 Miscarriage: 1 : 0 Past Surgical History Abdominal Surgery: No AICD: No Body Medical Devices: NONE Cardiac Surgery: No Ear Surgery: No Endocrine Surgery: No Eye Surgery: No Genitourinary Surgery: No Gynecologic Surgery: Yes (MULTIPLE CONE BIOPSIES FOR CERVICAL DYSPLASIA) Joint Replacement: No Neurologic Surgery: No Oral Surgery: Yes (TONSILLECTOMY) Pacemaker: No Thoracic Surgery: No Tonsillectomy: Yes Other Surgery: Yes (TONSILECTOMY) Social History Alcohol Use: Yes (HX : ETOH ABUSE ) Tobacco Use: Yes Substance Use: No Allergies-Medications (Allergen,Severity, Reaction): Coded Allergies: Zyrtec (Verified Allergy, Severe, 10/23/16) PALPATATIONS Reported Meds & Prescriptions Reported Meds & Active Scripts Active Permethrin Topical (Permethrin) 5% Cream 1 Applic TOPICAL ONCE Prednisone 50 Mg Tab 50 Mg PO DAILY Folate (Folic Acid) 1 Mg Tab 1 Mg PO DAILY 30 Days Vitamin B-1 (Thiamine HCl) 100 Mg Tab 100 Mg PO DAILY 30 Days Buspirone (Buspirone HCl) 5 Mg Tab 5 Mg PO TID 7 Days Reported Topiramate ER (Topiramate) 25 Mg Cap 25 Mg PO DAILY Gabapentin 800 Mg Tab 800 Mg PO TID Review of Systems General / Constitutional: No: Fever Eyes: No: Visual changes HENT: No: Headaches Cardiovascular: No: Chest Pain or Discomfort Respiratory: Positive: Cough, No: Shortness of Breath Gastrointestinal: No: Abdominal Pain Genitourinary: No: Dysuria Musculoskeletal: No: Pain Skin: Positive Rash, Positive Itching Neurologic: No: Weakness Psychiatric: No: Depression Endocrine: No: Polydipsia Hematologic/Lymphatic: No: Easy Bruising Physical Exam Narrative GENERAL: AAO x 3, no acute distress, Well-nourished, well-developed patient. SKIN: Warm and dry. No visible rashes or bruising. Linear lesions dispersed on the back and left anterior shoulder and biceps. Some evidence of burrowing. No edema, erythema or warmth. HEAD: Normocephalic and atraumatic. EYES: No scleral icterus. No injection or drainage. ENT: No nasal drainage noted. Mucous membranes pink. Airway patent. No posterior pharynx erythema, edema or exudates. TMs normal bilaterally. NECK: Supple, trachea midline. No JVD. No lymphadenopathy. CARDIOVASCULAR: Regular rate and rhythm without murmurs, gallops, or rubs. RESPIRATORY: Breath sounds equal bilaterally. No accessory muscle use. No rhonchi or rales. No wheezing. GASTROINTESTINAL: Abdomen soft, non-tender, nondistended. EXTREMITIES: No cyanosis or edema. BACK: Nontender without obvious deformity. No CVA tenderness. PSYCH: AAO x 3, normal affect. Data Data Last Documented VS Vital Signs Date Time Temp Pulse Resp B/P Pulse Ox O2 Delivery O2 Flow Rate FiO2 10/23/16 13:04 98.8 80 18 133/60 98 MDM Medical Decision Making Medical Screen Exam Complete: Yes Emergency Medical Condition: Yes Medical Record Reviewed: Yes Differential Diagnosis Bronchitis, scabies, less likely cellulitis, less likely sinusitis Narrative Course 55-year-old female with history of alcohol abuse here with complaints of coughing for the past 3-4 days. She is also complaining of an itchy rash randomly dispersed on her body for about a week. Patient tells me that she's been coughing intermittently for the past 3-4 days. She denies any fever or chills. She denies any cold symptoms. She is a smoker. She is also complaining of itchy rash randomly dispersed on her body. The main affected areas are her shoulders, back and on her left arm. She tells me that she is staying with a leslie who recently took in a homeless girl and she caught the rash after the girl moved in. She tells me that it's extremely itchy. She denies any exposure to new hygiene products. She denies ingestion of any new foods. She denies any shortness of breath or angioedema. Patient seen and examined. In regards to her rash this appears to be scabies. There are linear lesions dispersed on her back, primarily left shoulder and arm. There seems to be some evidence of burrowing. There are some excoriations present. The area does not appear infected. There is no surrounding erythema, edema or warmth. Her lung examination is unremarkable. I do not find any acute abnormalities for her ears, nose and throat. It appears that she may have a mild case of bronchitis. I recommend a course of treatment with steroids. I will also provide her with permethrin for scabies. I've explained to her that she will need to clean her living quarters and belongings. Patient verbalized understanding of instructions, questions were answered, and thanked me for their care. I advised them if their condition worsens, please return to the nearest emergency room for further care. Diagnosis Primary Impression: Acute bronchitis Qualified Code: J20.9 - Acute bronchitis, unspecified organism Additional Impression: Scabies Patient Instructions: Acute Bronchitis (ED), General Instructions, Scabies (ED) Additional Instructions: As we discussed the cough can last 6-8 weeks. Take medications as prescribed. If you are a smoker, try to quit. Follow up with your primary care provider. If you develop sudden onset or worsening of shortness or breath, please go to the nearest emergency room. Please return to emergency department if your symptoms return or worsen. Follow up with your primary care provider. Take medications as prescribed. Med/Other Pt SpecificInfo: Prescription(s) given Scripts Permethrin Topical 5% Cream1 Applic TOPICAL ONCE #1 TUBE Ref 1 Prov:Jennifer Crowell MD 10/23/16 Prednisone 50 Mg Tab50 Mg PO DAILY #5 TAB Prov:Jennifer Crowell MD 10/23/16 Disposition: 01 DISCHARGE HOME Condition: Stable Cris Penn Oct 23, 2016 13:57
== END 2016-10-23 14:16 | disposition home or self-care (01) ==
LOC: NEPD 13:02
DX: J20.9 Acute bronchitis, unspecified (principal); B86 Scabies; I10 Essential (primary) hypertension; E11.9 Type 2 diabetes mellitus without complications; Z72.0 Tobacco use; Z86.79 Personal history of other diseases of the circulatory system; Z87.19 Personal history of other diseases of the digestive system; Z86.19 Personal history of other infectious and parasitic diseases; Z87.39 Personal history of other diseases of the musculoskeletal system and connective tissue; Z86.59 Personal history of other mental and behavioral disorders
CPT/HCPCS: 99283

== ENCOUNTER 2016-10-27 15:57 | Emergency (ER) | payer SELFPAY ==
[~2016-10-27] VITALS: Ht 170.2 cm; Wt 65.0 kg
[~2016-10-27 15:57] MED LIST changes: -ACET1CAP18 PO; -OLAN5TAB PO; +PERM5CRE TOPICAL; +PRED50 PO; -VITA100T54 PO
[2016-10-27 15:58] VITALS: BP 141/82; PULSE 96; RESP 20; TEMP 98; O2SAT 96
--- NOTE | 2016-10-27 16:23 | PD ---
Physical Exam Date Seen by Provider: Oct 27, 2016 Time Seen by Provider: 16:20 Narrative Pt is a 55 year old female presenting to the ED for evaluation of possible bronchitis. She reports a sore throat and chest congestion. Pt has had these symptoms for approx. 1 week. Pt lost her voice today. Pt reports fevers of 103 last night. No vomiting, but reports feeling nauseated. VSS awaiting bed placement, Data Data Last Documented VS Vital Signs Date Time Temp Pulse Resp B/P Pulse Ox O2 Delivery O2 Flow Rate FiO2 10/27/16 15:58 98.0 96 20 141/82 96 Room Air [facility] Supervised Visit with EILEEN: Katarina Tello Oct 27, 2016 16:23
--- NOTE | 2016-10-27 17:21 | PD ---
HPI Chief Complaint: Cold / Flu Symptoms Time Seen by Provider: 17:21 Travel History International Travel<30 days: No Contact w/Intl Traveler<30days: No Traveled to known affect area: No History of Present Illness HPI Patient 55-year-old female history of smoking as well as multiple myeloma not currently undergoing treatment presents emergency department for evaluation of cough. Patient was seen here earlier this week and diagnosed with bronchitis. She was placed on steroids that time which she is near finished and states she is not feeling any better. She thinks she needs some antibiotics. She denies any fevers. She does endorse some mild chest achiness. Patient has a secondary complaint of depression. She states she's had depression for a long period of time and states that she doesn't take her medicine is working quite as well as it had been. Patient states she has been having some intermittent very passive suicidal ideation. She has not had any planning. She states that she would not go through with any suicidal ideation. PFSH Past Medical History Blood Disorders: No Bipolar Disorder: Yes Anxiety: Yes Depression: Yes Heart Rhythm Problems: No Cancer: Yes (lesions found on her brain/skull as per pt. 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) Thyroid Disease: No Tetanus Vaccination: > 5 Years Influenza Vaccination: Yes ?: Not Menopausal: Yes : 5 Para: 4 Miscarriage: 1 : 0 Past Surgical History Abdominal Surgery: No AICD: No Body Medical Devices: NONE Cardiac Surgery: No Ear Surgery: No Endocrine Surgery: No Eye Surgery: No Genitourinary Surgery: No Gynecologic Surgery: Yes (MULTIPLE CONE BIOPSIES FOR CERVICAL DYSPLASIA) Joint Replacement: No Neurologic Surgery: No Oral Surgery: Yes (TONSILLECTOMY) Pacemaker: No Thoracic Surgery: No Tonsillectomy: Yes Other Surgery: Yes (TONSILECTOMY) Social History Alcohol Use: Yes (HX : ETOH ABUSE ) Tobacco Use: Yes Substance Use: No Allergies-Medications (Allergen,Severity, Reaction): Coded Allergies: Zyrtec (Verified Adverse Reaction, Severe, palpitations, 10/27/16) PALPATATIONS Reported Meds & Prescriptions Reported Meds & Active Scripts Active Folate (Folic Acid) 1 Mg Tab 1 Mg PO DAILY 30 Days Vitamin B-1 (Thiamine HCl) 100 Mg Tab 100 Mg PO DAILY 30 Days Buspirone (Buspirone HCl) 5 Mg Tab 5 Mg PO TID 7 Days Reported Topiramate ER (Topiramate) 25 Mg Cap 25 Mg PO DAILY Gabapentin 800 Mg Tab 800 Mg PO TID Review of Systems Except as stated in HPI: all other systems reviewed are Neg Physical Exam Narrative GENERAL: Well-developed well-nourished no apparent distress SKIN: Focused skin assessment warm/dry. HEAD: Atraumatic. Normocephalic. EYES: Pupils equal and round. No scleral icterus. No injection or drainage. ENT: No nasal bleeding or discharge. Mucous membranes pink and moist. NECK: Trachea midline. No JVD. CARDIOVASCULAR: Regular rate and rhythm. No murmur appreciated. RESPIRATORY: No accessory muscle use. Harsh breath sounds consistent with bronchitis throughout all lung monson. No rales. No increased work of breathing. Breath sounds equal bilaterally. GASTROINTESTINAL: Abdomen soft, non-tender, nondistended. Hepatic and splenic margins not palpable. MUSCULOSKELETAL: No obvious deformities. No clubbing. No cyanosis. No edema. NEUROLOGICAL: Awake and alert. No obvious cranial nerve deficits. Motor grossly within normal limits. Normal speech. PSYCHIATRIC: Appropriate mood and affect; insight and judgment normal. Data Data Last Documented VS Vital Signs Date Time Temp Pulse Resp B/P Pulse Ox O2 Delivery O2 Flow Rate FiO2 10/27/16 15:58 98.0 96 20 141/82 96 Room Air Orders Chest, Pa & Lat (10/27/16 ) [facility] Medical Decision Making Medical Screen Exam Complete: Yes Emergency Medical Condition: Yes Differential Diagnosis Bronchitis, pneumonia, depression. Narrative Course Patient roomed in the emergency department, she appears well in no apparent distress. Lung sounds consistent with bronchitis. She continues to smoke. She does have multiple myeloma by her history and states she has not started treatment yet. Discussed smoking cessation. Will trial of azithromycin but the patient is instructed to expect 6-8 weeks of symptoms. There is also possibility that she has developed chronic bronchitis and the bronchitis may last for significantly longer. Again smoking cessation was discussed to prevent further adverse health effects. Chest x-ray was obtained which shows no acute cardiopulmonary abnormality. The subject of her depression the patient is a very passive suicidal ideation which is intermittent. She states she is not currently suicidal. She was offered voluntary psychiatric evaluation and declined. She does not meet Kirkpatrick act criteria. She can follow-up with her primary care physician. Diagnosis Primary Impression: Acute bronchitis Qualified Code: J20.9 - Acute bronchitis, unspecified organism Med/Other Pt SpecificInfo: Prescription(s) given Scripts Azithromycin 250 Mg Dee682 Mg PO DIRECTED #6 TAB Ref 0 Take 2 tabs (500 mg) on day 1 then 1 tab daily x 4 days. Prov:Liban Dunham MD 10/27/16 Disposition: 01 DISCHARGE HOME Condition: Stable Liban Dunham MD Oct 27, 2016 17:21
[2016-10-27 17:30] VITALS: BP 131/82; TEMP 97.8
[2016-10-27] MEDS ORDERED: AZIT250T3 PO (17:31)
--- NOTE | 2016-10-27 17:49 | RADRPT ---
EXAM DATE/TIME: 10/27/2016 17:31 [place] COMPARISON: CHEST PA & LAT, July 12, 2014, 10:30. INDICATIONS : Cough. MEDICAL HISTORY : None. SURGICAL HISTORY : None. ENCOUNTER: Initial ACUITY: 1 week PAIN SCORE: 9/10 LOCATION: Bilateral chest FINDINGS: PA and lateral views of the chest demonstrate the lungs to be symmetrically aerated without evidence of mass, infiltrate or effusion. 2 calcified nodules in the right lung measuring 2 mm and 4 mm are u nchanged from prior chest x-ray July 2049, probably representing granulomata. The cardiomediastin al contours are unremarkable. Osseous structures are intact. CONCLUSION: No acute cardiopulmonary disease. Chris Quarles MD on October 27, 2016 at 17:47 Board Certified Radiologist. This report was verified electronically.
[2016-10-27 18:00] VITALS: BP 122/68; TEMP 97.8
[2016-10-28] MEDS ORDERED: ZYPR20TA PO (19:03)
== END 2016-10-27 18:00 | disposition home or self-care (01) ==
LOC: NEPD 15:57
DX: J20.9 Acute bronchitis, unspecified (principal); I10 Essential (primary) hypertension; E11.9 Type 2 diabetes mellitus without complications; Z72.0 Tobacco use
CPT/HCPCS: 71020; 99284

== ENCOUNTER 2016-10-28 16:50 | Emergency (ER) | payer SELFPAY ==
[~2016-10-28] VITALS: Ht 170.2 cm; Wt 70.0 kg
[~2016-10-28 16:50] MED LIST changes: +AZIT250T3 PO; -PERM5CRE TOPICAL; -PRED50 PO
[2016-10-28 16:54] VITALS: BP 125/84; PULSE 74; RESP 15; TEMP 98.2; O2SAT 98
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
[2016-10-28] MEDS ORDERED: methylPREDNISolone SOD SUCC 125 MG/2 ML VIAL IVP ONE (18:45)
[2016-10-28] MEDS ORDERED: RESP: ALBUTEROL 2.5 MG/IPRATROPIUM 0.5 MG NEB (SCH) NEB ONE (18:45)
[2016-10-28] MEDS ORDERED: busPIRone HCL 10 MG TAB PO ONE (18:45)
[2016-10-28] MEDS ORDERED: ZYPR20TA PO (19:03)
[2016-10-28 19:20] VITALS: BP 131/70; PULSE 88; RESP 18; O2SAT 98
[2016-10-28] MEDS ORDERED: GABAPENTIN 400 MG CAP PO ONE (19:30)
[2016-10-28 19:32] LABS: AUTOMATED NEUTROPHIL # 2.6 TH/MM3 (1.8-7.7); BASOPHIL % 0.6 % (0.0-2.0); EOSINOPHIL # 0.2 TH/MM3 (0-0.4); EOSINOPHIL % 4.7 % (0.0-4.0); HEMATOCRIT 35.5 % (35.0-46.0); HEMO FLAGS DIFF FINAL; LYMPH % 31.2 % (9.0-44.0); LYMPHOCYTE # 1.4 TH/MM3 (1.0-4.8); MEAN CORPUSCULAR HEMOGLOBIN 25.8 PG (27.0-34.0); MEAN CORPUSCULAR HGB CONC 32.2 % (32.0-36.0); NEUT % 57.5 % (16.0-70.0); PLATELET COUNT 124 TH/MM3 (150-450); RED BLOOD COUNT 4.44 MIL/MM3 (4.00-5.30); RED CELL DISTRIBUTION WIDTH 16.5 % (11.6-17.2); WHITE BLOOD COUNT 4.5 TH/MM3 (4.0-11.0)
[2016-10-28 19:48] LABS: AMPHETAMINE, URINE POS (NEG); BARBITURATES, URINE NEG (NEG); COCAINE, URINE NEG (NEG)
[2016-10-28 20:00] LABS: ALKALINE PHOSPHATASE 105 U/L (45-117); ALT (GPT) 44 U/L (10-53); ANION GAP 9 MEQ/L (5-15); AST (GOT) 38 U/L (15-37); BICARBONATE 24.2 MEQ/L (21.0-32.0); BLOOD UREA NITROGEN 10 MG/DL (7-18); CHLORIDE 107 MEQ/L (98-107); GLOMERULAR FILTRATION RATE 67 ML/MIN (>89); POTASSIUM 3.8 MEQ/L (3.5-5.1); SODIUM (NA) 140 MEQ/L (136-145); TOTAL BILIRUBIN ADULT 0.3 MG/DL (0.2-1.0)
[2016-10-28 23:31] VITALS: BP 141/67; PULSE 101; RESP 19; O2SAT 98
[2016-10-29 02:26] VITALS: BP 139/60; PULSE 78; PULSE 98; RESP 18; O2SAT 97
[2016-10-29 06:00] VITALS: BP 180/90; PULSE 95; RESP 18; O2SAT 99
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
== END 2016-10-29 12:25 | disposition home or self-care (01) ==
LOC: NEPE 16:50 → NEPJ 10-29 12:25
DX: J20.9 Acute bronchitis, unspecified (principal); R45.851 Suicidal ideations; F10.14 Alcohol abuse with alcohol-induced mood disorder; F31.9 Bipolar disorder, unspecified; E11.9 Type 2 diabetes mellitus without complications; I10 Essential (primary) hypertension
CPT/HCPCS: 80053; 80307; 85025; 94664; 96374; 99284; J2930

== ENCOUNTER 2016-11-11 21:40 | Emergency (ER) | payer OTHER ==
[~2016-11-11] VITALS: Ht 152.4 cm; Wt 50.0 kg
[~2016-11-11 21:40] MED LIST changes: -TOPI1CAP16 PO; +ZYPR20TA PO
[2016-11-11 22:00] VITALS: BP 122/73; PULSE 73; RESP 16; TEMP 98.3; O2SAT 94
[2016-11-11 23:11] LABS: AMPHETAMINE, URINE NEG (NEG); AUTOMATED NEUTROPHIL # 2.6 TH/MM3 (1.8-7.7); BARBITURATES, URINE NEG (NEG); BASOPHIL % 0.6 % (0.0-2.0); COCAINE, URINE NEG (NEG); EOSINOPHIL # 0.1 TH/MM3 (0-0.4); EOSINOPHIL % 1.5 % (0.0-4.0); HEMATOCRIT 37.3 % (35.0-46.0); HEMO FLAGS DIFF FINAL; LYMPH % 43.9 % (9.0-44.0); LYMPHOCYTE # 2.3 TH/MM3 (1.0-4.8); MEAN CELL VOLUME 81.2 FL (80.0-100.0); MEAN CORPUSCULAR HEMOGLOBIN 26.3 PG (27.0-34.0); MEAN CORPUSCULAR HGB CONC 32.4 % (32.0-36.0); PLATELET COUNT 159 TH/MM3 (150-450); RED BLOOD COUNT 4.59 MIL/MM3 (4.00-5.30); RED CELL DISTRIBUTION WIDTH 17.8 % (11.6-17.2); WHITE BLOOD COUNT 5.3 TH/MM3 (4.0-11.0)
[2016-11-11 23:21] LABS: ANION GAP 5 MEQ/L (5-15)
[2016-11-11 23:24] LABS: ACETAMINOPHEN LESS THAN 2.0 MCG/ML (10.0-30.0); ALKALINE PHOSPHATASE 124 U/L (45-117); ALT (GPT) 91 U/L (10-53); AST (GOT) 120 U/L (15-37); BICARBONATE 33.9 MEQ/L (21.0-32.0); BLOOD UREA NITROGEN 11 MG/DL (7-18); CHLORIDE 102 MEQ/L (98-107); GLOMERULAR FILTRATION RATE 87 ML/MIN (>89); POTASSIUM 4.3 MEQ/L (3.5-5.1); SODIUM (NA) 141 MEQ/L (136-145); TOTAL BILIRUBIN ADULT 0.4 MG/DL (0.2-1.0)
--- NOTE | 2016-11-11 23:49 | PD ---
HPI Chief Complaint: Psychiatric Symptoms Time Seen by Provider: 21:51 Travel History International Travel<30 days: No Contact w/Intl Traveler<30days: No Traveled to known affect area: No History of Present Illness HPI 56 yo F arrives as BA. She was intoxicated at airport, evidently too drunk to get on the airplane. She does not remember how much she drank. She denies drug abuse. She denies HI/SI. On my examination she states she's here because, "I was thirsty." No medical complaint. Location neuropsychiatric. Timing constant. Severity moderate. PFSH Past Medical History Medical History: Unable to Obtain Blood Disorders: No Bipolar Disorder: Yes Anxiety: Yes Depression: Yes Heart Rhythm Problems: No Cancer: Yes (lesions found on her brain/skull as per pt. 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) Thyroid Disease: No ?: Not LMP: years Menopausal: Yes : 5 Para: 4 Miscarriage: 1 : 0 Past Surgical History Surgical History: Unable to Obtain Abdominal Surgery: No AICD: No Body Medical Devices: NONE Cardiac Surgery: No Ear Surgery: No Endocrine Surgery: No Eye Surgery: No Genitourinary Surgery: No Gynecologic Surgery: Yes (MULTIPLE CONE BIOPSIES FOR CERVICAL DYSPLASIA) Hysterectomy: Yes Joint Replacement: No Neurologic Surgery: No Oral Surgery: Yes (TONSILLECTOMY) Pacemaker: No Thoracic Surgery: No Tonsillectomy: Yes Other Surgery: Yes (TONSILECTOMY) Social History Alcohol Use: Yes Tobacco Use: Yes Substance Use: No Allergies-Medications (Allergen,Severity, Reaction): Coded Allergies: Zyrtec (Verified Adverse Reaction, Severe, palpitations, 10/28/16) PALPATATIONS Reported Meds & Prescriptions Reported Meds & Active Scripts Active Folate (Folic Acid) 1 Mg Tab 1 Mg PO DAILY 30 Days Vitamin B-1 (Thiamine HCl) 100 Mg Tab 100 Mg PO DAILY 30 Days Buspirone (Buspirone HCl) 5 Mg Tab 5 Mg PO TID 7 Days Reported Zyprexa (Olanzapine) 20 Mg Tab Unknown Dose PO HS Gabapentin 800 Mg Tab 800 Mg PO TID Review of Systems Except as stated in HPI: all other systems reviewed are Neg General / Constitutional: No: Fever Physical Exam Narrative GENERAL: 56 yo F, pleasant, WNWD SKIN: Warm and dry. HEAD: Atraumatic. Normocephalic. EYES: Pupils equal and round. No scleral icterus. No injection or drainage. ENT: No nasal bleeding or discharge. Mucous membranes pink and moist. NECK: Trachea midline. No JVD. CARDIOVASCULAR: Regular rate and rhythm. RESPIRATORY: No accessory muscle use. Clear to auscultation. Breath sounds equal bilaterally. GASTROINTESTINAL: Abdomen soft, non-tender, nondistended. Hepatic and splenic margins not palpable. MUSCULOSKELETAL: Extremities without clubbing, cyanosis, or edema. No obvious deformities. NEUROLOGICAL: Awake and alert. No obvious cranial nerve deficits. Motor grossly within normal limits. Five out of 5 muscle strength in the arms and legs. Normal speech. PSYCHIATRIC: EtOH on breath. Denies HI/SI. Data Data Last Documented VS Vital Signs Date Time Temp Pulse Resp B/P Pulse Ox O2 Delivery O2 Flow Rate FiO2 11/11/16 22:00 98.3 73 16 122/73 94 Room Air VS reviewed Orders Complete Blood Count With Diff (11/11/16 22:31) Comprehensive Metabolic Panel (11/11/16 22:31) Psych Screen (11/11/16 22:31) Drug Screen, Random Urine (11/11/16 22:31) Alcohol (Ethanol) (11/11/16 22:31) Salicylates (Aspirin) (11/11/16 22:31) Tylenol (Acetaminophen) (11/11/16 22:31) Labs Laboratory Tests Test 11/11/16 22:50 White Blood Count 5.3 TH/MM3 Red Blood Count 4.59 MIL/MM3 Hemoglobin 12.1 GM/DL Hematocrit 37.3 % Mean Corpuscular Volume 81.2 FL Mean Corpuscular Hemoglobin 26.3 PG Mean Corpuscular Hemoglobin 32.4 % Concent Red Cell Distribution Width 17.8 % Platelet Count 159 TH/MM3 Mean Platelet Volume 7.5 FL Neutrophils (%) (Auto) 49.0 % Lymphocytes (%) (Auto) 43.9 % Monocytes (%) (Auto) 5.0 % Eosinophils (%) (Auto) 1.5 % Basophils (%) (Auto) 0.6 % Neutrophils # (Auto) 2.6 TH/MM3 Lymphocytes # (Auto) 2.3 TH/MM3 Monocytes # (Auto) 0.3 TH/MM3 Eosinophils # (Auto) 0.1 TH/MM3 Basophils # (Auto) 0.0 TH/MM3 CBC Comment DIFF FINAL Differential Comment Sodium Level 141 MEQ/L Potassium Level 4.3 MEQ/L Chloride Level 102 MEQ/L Carbon Dioxide Level 33.9 MEQ/L Anion Gap 5 MEQ/L Blood Urea Nitrogen 11 MG/DL Creatinine 0.70 MG/DL Estimat Glomerular Filtration 87 ML/MIN Rate Random Glucose 84 MG/DL Calcium Level 8.5 MG/DL Total Bilirubin 0.4 MG/DL Aspartate Amino Transf 120 U/L (AST/SGOT) Alanine Aminotransferase 91 U/L (ALT/SGPT) Alkaline Phosphatase 124 U/L Total Protein 7.5 GM/DL Albumin 3.6 GM/DL Salicylates Level 5.2 MG/DL Urine Opiates Screen NEG Acetaminophen Level LESS THAN 2.0 MCG/ML Urine Barbiturates Screen NEG Urine Amphetamines Screen NEG Urine Benzodiazepines Screen NEG Urine Cocaine Screen NEG Urine Cannabinoids Screen NEG Ethyl Alcohol Level 199 MG/DL MDM Medical Decision Making Medical Screen Exam Complete: Yes Emergency Medical Condition: Yes Medical Record Reviewed: Yes Differential Diagnosis Altered mental status/psychosis due to infection/environmental exposure/ metabolic abnormality, polypharmacy, alcohol abuse/intoxication, illicit or prescribed drug abuse, malingering/secondary gain, non-organic psychiatric disease Narrative Course The history of present illness, ROS, physical exam, review of records and medical workup performed for today's visit have reasonably safely excluded organic etiologies for the patient's presenting complaint. We will continue to monitor the patient carefully in the ER until time of evaluation by the psychiatry service. We are available for any additional medical assistance if needed during the patient's ER course. Disposition per discretion of psychiatry is appreciated. CBC & BMP Diagram 11/11/16 22:50 LFTs normal Etoh 199 UDrug negative APAP/Salicylates negative Diagnosis Primary Impression: Acute alcohol intoxication Qualified Code: F10.129 - Acute alcohol intoxication, with unspecified complication Additional Impression: Transaminitis Brad Guadarrama MD November 11, 2016 23:49
[2016-11-12 01:11] VITALS: BP 128/73; PULSE 88; RESP 19; O2SAT 94
[2016-11-12 06:00] VITALS: BP 154/88; PULSE 65; RESP 18; O2SAT 95
[2016-11-12] MEDS ORDERED: LORazepam 1 MG TAB PO PRN (07:30)
[2016-11-12] MEDS ORDERED: FLUMAZENIL 0.5 MG/5 ML VIAL IV PUSH PRN (07:30)
[2016-11-12] MEDS ORDERED: LORazepam 2 MG TAB PO PRN (07:30)
[2016-11-12] MEDS ORDERED: LORazepam 2 MG/ML VIAL IV PUSH PRN ×4 (07:30)
[2016-11-12 10:35] VITALS: BP 134/70; PULSE 75; RESP 18
== END 2016-11-12 13:05 | disposition home or self-care (01) ==
LOC: NEPD 21:40 → NEPJ 11-12 13:05
DX: F10.129 Alcohol abuse with intoxication, unspecified (principal); R74.0 Nonspecific elevation of levels of transaminase and lactic acid dehydrogenase [LDH]; Y90.6 Blood alcohol level of 120-199 mg/100 ml; Z79.899 Other long term (current) drug therapy
CPT/HCPCS: 80053; 80307; 85025; 99284